=== PATIENT | female | born 1975 | race Caucasian/White ===

== ENCOUNTER → 2018-10-08 10:04 | Outpatient (CLI) | payer OTHER, MEDICAID, SELFPAY ==
[2018-10-08 10:41] LABS: Add Manual Diff / Slide Review NO; Basophils Absolute Auto 0 /uL (0-100); Basophils Percent Auto 0.4 % (0-2); Eosinophils Absolute Auto 100 /uL (0-450); Hematocrit 41.3 % (36-46); Hemoglobin 13.6 g/dL (12.0-16.0); Lymphocytes Absolute Auto 1200 /uL (1100-4500); Lymphocytes Percent Auto 25.2 % (25-40); Mean Corpuscular HGB Conc 32.9 % (30-36); Mean Corpuscular Volume 84.9 fL (80-100); Monocytes Absolute Auto 500 /uL (0-900); Monocytes Percent Auto 11.6 % (3-14); Neutrophils Absolute Auto 2900 /uL (1500-7000); Neutrophils Percent Auto 60.8 % (50-75); Platelet Count 338 X10^3/uL (150-400); Red Blood Cell Count 4.86 X10^6/uL (4.0-5.2); Red Cell Distribution Width 14.4 % (11.6-14.8); White Blood Cell Count 4.7 X10^3/uL (4.5-11.0)
[2018-10-08 11:18] LABS: HEMOLYSIS < 15 (0-50); Iron 113 ug/dL (37-170)
[2018-10-08 11:19] LABS: Alanine Aminotransferase 27 IU/L (9-52); Albumin 4.6 g/dL (3.5-5.0); Albumin Globulin Ratio 1.4 (1.0-2.8); Alkaline Phosphatase 53 U/L (38-126); Aspartate Aminotransferase 25 IU/L (14-36); BUN Creatinine Ratio 23.3 (6-22); Bilirubin Total 0.6 mg/dL (0.2-1.3); Blood Urea Nitrogen 14 mg/dL (7-17); Calcium 9.2 mg/dL (8.4-10.2); Carbon Dioxide 29 mmol/L (22-32); Chloride 98 mmol/L (98-107); Cholesterol 249 mg/dL (140-199); Estimated Glomerular Filt Rate > 60.0 mL/min (>60); Globulin 3.3 g/dL (1.7-4.1); Glucose 94 mg/dL (70-100); HDL Cholesterol 76 mg/dL (40-60); HEMOLYSIS < 15 (0-50); LDL Cholesterol Calculated 149 mg/dL (<100); Potassium 4.2 mmol/L (3.4-5.1); Sodium 137 mmol/L (137-145); Total Protein 7.9 g/dL (6.3-8.2); Triglycerides 118 mg/dL (35-150)
[2018-10-08 11:29] LABS: Percent Iron Saturation 27 % (15-50); Total Iron Binding Capacity 418 ug/dL (265-497); Transferrin 330 mg/dL (206-381)
[2018-10-08 11:40] LABS: Rheumatoid Factor < 8.6 IU/mL (<12.0)
[2018-10-08 11:45] LABS: Erythrocyte Sedimentation Rate 7 MM/HR (0-20)
[2018-10-08 11:50] LABS: Thyroid Stimulating Hormone 1.18 uIU/mL (0.47-4.68)
[2018-10-08 11:55] LABS: Ferritin 6.3 ng/mL (6.27-137)
[2018-10-12 07:47] LABS: ANA Screen NEGATIVE (Negative); DNA Antibody Crithidia IFA NEGATIVE (Negative); Rheumatoid Factor <14 IU/mL; Sjogren Antiboday SS-A <1.0 NEG AI (<1.0 NEGATIVE); Sjogren Antiboday SS-B <1.0 NEG AI (<1.0 NEGATIVE); Sm Antibody <1.0 NEG AI (<1.0 NEGATIVE); Sm/RNP Antibody <1.0 NEG AI (<1.0 NEGATIVE)
== END ==
PROVIDERS: Visit Provider Physician Assistant
DX: Z13.220 Encounter for screening for lipoid disorders (principal); Z13.6 Encounter for screening for cardiovascular disorders; M25.50 Pain in unspecified joint; N92.0 Excessive and frequent menstruation with regular cycle; R53.83 Other fatigue; M06.30 Rheumatoid nodule, unspecified site
CPT/HCPCS: 36415; 80053; 80061; 82728; 83540; 83550; 84443; 85025; 85651; 86038; 86430

== ENCOUNTER → 2019-03-30 08:49 | Outpatient (CLI) | payer OTHER, MEDICAID, SELFPAY ==
[2019-03-30 10:19] LABS: Cholesterol 253 mg/dL (140-199); HDL Cholesterol 78 mg/dL (40-60); LDL Cholesterol Calculated 155 mg/dL (<100); Triglycerides 100 mg/dL (35-150)
== END ==
PROVIDERS: PCP Physician Assistant; Visit Provider Physician Assistant
DX: E78.5 Hyperlipidemia, unspecified (principal)
CPT/HCPCS: 36415; 80061

== ENCOUNTER 2019-09-20 09:54 | Emergency (ER) | payer OTHER, MEDICAID, SELFPAY ==
[2019-09-20 10:16] VITALS: BP 172/90; PULSE 129; RESP 21; TEMP 36.8; O2SAT 100; BMI 30.9
--- NOTE | 2019-09-20 10:19 | DI.RAD.S_ITS ---
PROCEDURE: XR CHEST 1V INDICATIONS: chest pain TECHNIQUE: One view of the chest was acquired. COMPARISON: None. FINDINGS: Surgical changes and devices: None. Lungs and pleura: Lungs are clear. No pleural effusions or pneumothorax. Mediastinum: Mediastinal contours appear normal. Heart size is normal. Bones and chest wall: No suspicious bony lesions. Overlying soft tissues appear unremarkable. IMPRESSION: No acute process. Dictated by: Mallory Ozuna M.D. on 09/20/2019 at 11:07 Approved by: Mallory Ozuna M.D. on 09/20/2019 at 11:08
--- NOTE | 2019-09-20 10:24 | ED.CHESTPAIN ---
HPI - Chest Pain General Chief Complaint: Chest Pain Stated Complaint: elevated blood pressure Time Seen by Provider: 09/20/19 10:15 Source: patient Mode of arrival: Ambulatory Limitations: no limitations History of Present Illness HPI narrative: Patient states that on Thursday she was sitting at work and she felt like that her breathing was like she was exercising. She was not having any chest pain. She did feel like her heart was beating fast. She took her blood pressure and it was elevated. States the entire symptoms lasted approximately an hour. On Thursday similar symptoms happened again. She states she generally does not feel well. She has been taking her blood pressures multiple times throughout the past couple days and they have been elevated. No prior history of blood pressures. Her menstrual cycle did start just prior to the onset of the symptoms. Has not tried anything for symptoms prior to arrival. Related Data Previous Rx's Medication Instructions Recorded buspirone 10 mg tablet 10 mg PO BID #60 tab 05/09/19 hydroxyzine pamoate 25 mg capsule 25 mg PO TID PRN #60 cap 05/09/19 triamcinolone acetonide 0.1 % 1 applictn TOP BID #15 gram 09/06/19 topical cream Allergies Allergy/AdvReac Type Severity Reaction Status Date / Time No Known Drug Allergies Allergy Verified 09/20/19 10:16 Review of Systems Constitutional Constitutional: Denies headache(s) ENT Ears, Nose, Mouth, and Throat: Denies headache(s) Cardiovascular Cardiovascular: Denies chest pain, Reports rapid heart rate, Denies leg edema, Reports palpitations, Reports dyspnea and Reports dyspnea on exertion Respiratory Respiratory: Reports dyspnea and Reports dyspnea on exertion Gastrointestinal Gastrointestinal: Denies abdominal pain, Denies nausea and Denies vomiting Genitourinary Genitourinary: Denies dysuria Musculoskeletal Musculoskeletal: Denies myalgias and Denies arthralgias Integumentary/Breasts Skin/Breast: Denies lesions and Denies rash Neurologic Neurologic: Denies behavioral changes and Denies headache(s) Psychiatric Psychiatric: Denies behavioral changes Endocrine Endocrine: Reports palpitations Hematologic/Lymphatic Hematologic/Lymphatic: Denies easy bleeding and Denies easy bruising Patient History Medical History Contact dermatitis (Acute) Hearing loss (Chronic) Restless leg syndrome (Chronic) Seasonal allergies (Chronic) Family History (Updated 11/12/18 @ 20:45 by Jazlyn Grewal) Father Mental health problem Arthritis Mother Cancer Hyperlipidemia Thyroid disease Migraines Grandfather Heart disease Hyperlipidemia Stroke Grandmother Hypertension Mental health problem Stroke Arthritis Grandfather Heart disease Grandmother Cancer Social History Smoking Status: Never smoker second hand exposure: Yes (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.) alcohol intake: former (only for a couple of years in my 20s.) substance use type: does not use Smoking Status: Never smoker alcohol intake frequency: holidays/special occasions only Substance Use Type: does not use Exam Initial Vital Signs Initial Vital Signs: Vital Signs Temperature 98.3 F 09/20/19 10:16 Pulse Rate 129 H 09/20/19 10:16 Respiratory Rate 21 09/20/19 10:16 Blood Pressure 172/90 H 09/20/19 10:16 Pulse Oximetry 100 09/20/19 10:16 Const General: cooperative, comfortable and well developed Limitations: mental status not altered Resp Effort & Inspection: normal respiratory effort Auscultation: clear to auscultation bilaterally Cardio Rate: tachycardic Rhythm: regular rhythm Pulses: radial pulses present GI Inspection: non-distended Palpation: soft and No firm Skin Lesions: no lesions Rashes: no rashes Neuro General: alert, awake and oriented x3 Cognition: normal cognition Speech: speech normal Motor: muscle tone normal throughout Extrem General: normal to inspection and capillary refill normal Psych Appearance: grossly normal and well kempt Course Orders Ordered: ED Orders 09/20/19 10:15 EKG-12 Lead Stat 09/20/19 10:19 XR chest 1V Stat EKG-12 Lead Stat 09/20/19 10:23 Complete Blood Count AUTO DIFF Stat Comprehensive Metabolic Panel Stat D Dimer Stat Lipase Stat Partial Thromboplastin Time Stat Prothrombin Time INR Stat Troponin & CK Cardiac Panel Stat Vital Signs Vital signs: Vital Signs - 8 hr 09/20/19 10:16 Temperature 98.3 F Pulse Rate 129 H Respiratory Rate 21 Blood Pressure 172/90 H Pulse Oximetry 100 MDM - Chest Pain Lab Data Attestation: I reviewed the patient's lab results. Result diagrams: 09/20/19 10:23 09/20/19 10:23 Labs: Lab Results 09/20/19 09/20/19 09/20/19 Range/Units 10:23 10:23 10:23 WBC 9.2 (4.5-11.0) X10^3/uL RBC 4.91 (4.0-5.2) X10^6/uL Hgb 13.9 (12.0-16.0) g/dL Hct 41.2 (36-46) % MCV 83.9 (80-100) fL MCH 28.4 (26-34) PG MCHC 33.8 (30-36) % RDW 14.2 (11.6-14.8) % Plt Count 352 (150-400) X10^3/uL Neut % (Auto) 79.4 H (50-75) % Lymph % (Auto) 12.1 L (25-40) % Bartholomew % (Auto) 7.8 (3-14) % Eos % (Auto) 0.5 L (2-4) % Baso % (Auto) 0.2 (0-2) % Neut # (Auto) 7300 H (6928-7020) /uL Lymph # (Auto) 1100 (9888-3116) /uL Bartholomew # (Auto) 700 (0-900) /uL Eos # (Auto) 100 (0-450) /uL Baso # (Auto) 0 (0-100) /uL PT 11.2 (10.1-12.7) SECONDS INR 1.0 (0.9-1.3) APTT 35 (26.4-36.2) SECONDS D-Dimer (<230) ng/mL Sodium 138 (137-145) mmol/L Potassium 4.1 (3.4-5.1) mmol/L Chloride 103 (98-107) mmol/L Carbon Dioxide 25 (22-32) mmol/L BUN 14 (7-17) mg/dL Creatinine 0.60 (0.52-1.04) mg/dL Estimated GFR > 60.0 (>60) mL/min BUN/Creatinine Ratio 23.3 H (6-22) Glucose 105 H (70-100) mg/dL Calcium 9.3 (8.4-10.2) mg/dL Total Bilirubin 0.4 (0.2-1.3) mg/dL AST 24 (14-36) IU/L ALT 18 (<35) IU/L Alkaline Phosphatase 68 (38-126) U/L Total Creatine Kinase 65 (30-135) U/L CK-MB (CK-2) TNP CK-MB (CK-2) Rel Index TNP Troponin I < 0.012 (0.01-0.034) ng/mL Total Protein 8.2 (6.3-8.2) g/dL Albumin 4.7 (3.5-5.0) g/dL Globulin 3.5 (1.7-4.1) g/dL Albumin/Globulin Ratio 1.3 (1.0-2.8) Lipase 114 (23-300) U/L 09/20/19 Range/Units 10:23 WBC (4.5-11.0) X10^3/uL RBC (4.0-5.2) X10^6/uL Hgb (12.0-16.0) g/dL Hct (36-46) % MCV (80-100) fL MCH (26-34) PG MCHC (30-36) % RDW (11.6-14.8) % Plt Count (150-400) X10^3/uL Neut % (Auto) (50-75) % Lymph % (Auto) (25-40) % Bartholomew % (Auto) (3-14) % Eos % (Auto) (2-4) % Baso % (Auto) (0-2) % Neut # (Auto) (0054-0682) /uL Lymph # (Auto) (6601-1452) /uL Bartholomew # (Auto) (0-900) /uL Eos # (Auto) (0-450) /uL Baso # (Auto) (0-100) /uL PT (10.1-12.7) SECONDS INR (0.9-1.3) APTT (26.4-36.2) SECONDS D-Dimer 292 H (<230) ng/mL Sodium (137-145) mmol/L Potassium (3.4-5.1) mmol/L Chloride (98-107) mmol/L Carbon Dioxide (22-32) mmol/L BUN (7-17) mg/dL Creatinine (0.52-1.04) mg/dL Estimated GFR (>60) mL/min BUN/Creatinine Ratio (6-22) Glucose (70-100) mg/dL Calcium (8.4-10.2) mg/dL Total Bilirubin (0.2-1.3) mg/dL AST (14-36) IU/L ALT (<35) IU/L Alkaline Phosphatase (38-126) U/L Total Creatine Kinase (30-135) U/L CK-MB (CK-2) CK-MB (CK-2) Rel Index Troponin I (0.01-0.034) ng/mL Total Protein (6.3-8.2) g/dL Albumin (3.5-5.0) g/dL Globulin (1.7-4.1) g/dL Albumin/Globulin Ratio (1.0-2.8) Lipase (23-300) U/L Imaging Data Chest x-ray: Radiologist's Impression: [address] [address] XRay Report Signed Patient: Lisa Main LMR#: [id number] : 1975Acct:[id number] Age/Sex: 44 / FDate of Service: 09/20/19 Loc: ED Accession Number: [id number] Procedure: XR chest 1V Ordering Provider: Farzad Paige D.O. PROCEDURE: XR CHEST 1V INDICATIONS: chest pain TECHNIQUE: One view of the chest was acquired. COMPARISON: None. FINDINGS: Surgical changes and devices: None. Lungs and pleura: Lungs are clear. No pleural effusions or pneumothorax. Mediastinum: Mediastinal contours appear normal. Heart size is normal. Bones and chest wall: No suspicious bony lesions. Overlying soft tissues appear unremarkable. IMPRESSION: No acute process. Dictated by: Mallory Ozuna M.D. on 09/20/2019 at 11:07 Approved by: Mallory Ozuna M.D. on 09/20/2019 at 11:08 ECG Data Attestation: I personally reviewed and interpreted this ECG as follows: Prior ECG tracings: not available for review Interpretation: Sinus tachycardia Ventricular rate of 1 another Normal axis Normal QRS Normal QTC Nonspecific ST T wave changes MDM Narrative Medical decision making narrative: Patient's blood pressure did improve with rest. No chest pain. Low suspicion for CVA. Low suspicion for ACS. Kidney functions unremarkable. Was slightly tachycardic however was a regular rhythm. I did discuss this with the patient. We did discuss how to take her blood pressure at home. We did discuss that she should talk with her primary provider about a Holter monitor. Discussed return precautions and follow-up instructions. She expressed understanding and agreement plan. Discharge Plan Departure Patient Disposition: Home Clinical Impression: Tachycardia Hypertension Qualifiers: Hypertension type: unspecified Qualified Code(s): I10 - Essential (primary) hypertension Instructions: Essential Hypertension Activity Restrictions/Additional Instructions: Continue all of your medications as directed. I do recommend you talk with your primary provider about the indications for a Holter monitor. Take your blood pressure at home like we discussed. Return to the emergency department for any new or worsening symptoms Prescriptions: No Action hydroxyzine pamoate 25 mg capsule 25 mg PO TID PRN (Reason: anxiety) Qty: 60 RF: 6 buspirone 10 mg tablet 10 mg PO BID Qty: 60 RF: 6 triamcinolone acetonide 0.1 % cream 1 applictn TOP BID Qty: 15 RF: 1 Referrals: Annika Kramer PA-C [Primary Care Provider] -
[2019-09-20 11:01] VITALS: BP 186/84; PULSE 97; RESP 18; O2SAT 99
[2019-09-20 11:30] VITALS: BP 135/73; PULSE 104; RESP 17; O2SAT 100
[2019-09-20 12:01] VITALS: BP 150/70; PULSE 109; RESP 16; O2SAT 100
[2019-09-20 12:06] LABS: Add Manual Diff / Slide Review NO; Basophils Absolute Auto 0 /uL (0-100); Basophils Percent Auto 0.2 % (0-2); Eosinophils Absolute Auto 100 /uL (0-450); Eosinophils Percent Auto 0.5 % (2-4); Hematocrit 41.2 % (36-46); Hemoglobin 13.9 g/dL (12.0-16.0); Lymphocytes Absolute Auto 1100 /uL (1100-4500); Lymphocytes Percent Auto 12.1 % (25-40); Mean Corpuscular HGB Conc 33.8 % (30-36); Mean Corpuscular Hemoglobin 28.4 PG (26-34); Mean Corpuscular Volume 83.9 fL (80-100); Monocytes Absolute Auto 700 /uL (0-900); Monocytes Percent Auto 7.8 % (3-14); Neutrophils Absolute Auto 7300 /uL (1500-7000); Neutrophils Percent Auto 79.4 % (50-75); Platelet Count 352 X10^3/uL (150-400); Red Blood Cell Count 4.91 X10^6/uL (4.0-5.2); Red Cell Distribution Width 14.2 % (11.6-14.8); White Blood Cell Count 9.2 X10^3/uL (4.5-11.0)
[2019-09-20 12:14] LABS: Prothrombin Time 11.2 SECONDS (10.1-12.7)
[2019-09-20 12:16] LABS: PTT Partial Thromboplastin Tim 35 SECONDS (26.4-36.2)
[2019-09-20 12:18] LABS: Alanine Aminotransferase 18 IU/L (<35); Albumin 4.7 g/dL (3.5-5.0); Albumin Globulin Ratio 1.3 (1.0-2.8); Alkaline Phosphatase 68 U/L (38-126); Aspartate Aminotransferase 24 IU/L (14-36); BUN Creatinine Ratio 23.3 (6-22); Bilirubin Total 0.4 mg/dL (0.2-1.3); Blood Urea Nitrogen 14 mg/dL (7-17); Calcium 9.3 mg/dL (8.4-10.2); Carbon Dioxide 25 mmol/L (22-32); Chloride 103 mmol/L (98-107); Creatine Kinase 65 U/L (30-135); Estimated Glomerular Filt Rate > 60.0 mL/min (>60); Globulin 3.5 g/dL (1.7-4.1); Glucose 105 mg/dL (70-100); HEMOLYSIS 16 (0-50); Lipase 114 U/L (23-300); Potassium 4.1 mmol/L (3.4-5.1); Sodium 138 mmol/L (137-145); Total Protein 8.2 g/dL (6.3-8.2)
[2019-09-20 12:23] LABS: D Dimer 292 ng/mL (<230)
[2019-09-20 12:29] LABS: Troponin I < 0.012 ng/mL (0.01-0.034)
[2019-09-20 13:01] VITALS: BP 149/73; PULSE 99; RESP 16; O2SAT 100
--- NOTE | 2019-09-20 13:34 | PC.NURSE ---
Patient denies chest pain at this time. She reports it just feels sick and not right in her chest. Denies pressure or tightness or nausea. Patient is unable to describe what she means by sick feeling in chest. She also reports elevated heart rate 100-110bpm and elevated blood pressure of 150 systolic at home.
== END 2019-09-20 11:45 | disposition home or self-care (01) ==
PROVIDERS: Emergency Provider Emergency Medicine; PCP Physician Assistant
DX: R00.0 Tachycardia, unspecified (principal); I10 Essential (primary) hypertension; R07.9 Chest pain, unspecified
CPT/HCPCS: 36415; 71045; 80053; 82550; 83690; 84484; 85025; 85379; 85610; 85730; 93005; 99284; 99285

== ENCOUNTER → 2019-09-23 11:28 | Outpatient (CLI) | payer OTHER, MEDICAID, SELFPAY ==
[2019-09-23 13:12] LABS: Erythrocyte Sedimentation Rate 9 MM/HR (0-20)
[2019-09-23 13:46] LABS: C-Reactive Protein Quant < 0.5 mg/dL (<1.0); Rheumatoid Factor < 8.6 IU/mL (<12.0)
[2019-09-23 14:02] LABS: Free T3, Triiodothyronine Free 3.93 pg/mL (2.77-5.27); Free T4, Direct Thyroxine 1.23 ng/dL (0.78-2.19)
[2019-09-23 14:16] LABS: Thyroid Stimulating Hormone 1.18 uIU/mL (0.47-4.68)
== END ==
PROVIDERS: PCP Nurse Practitioner; Referring Provider Nurse Practitioner; Visit Provider Nurse Practitioner
DX: I10 Essential (primary) hypertension (principal); R00.0 Tachycardia, unspecified; R00.2 Palpitations; R94.31 Abnormal electrocardiogram [ECG] [EKG]
CPT/HCPCS: 36415; 84439; 84443; 84481; 85651; 86140; 86430

== ENCOUNTER → 2019-10-17 09:10 | Outpatient (CLI) | payer OTHER, MEDICAID, SELFPAY ==
--- NOTE | 2019-10-17 09:11 | DI.ECHO.S_ITS ---
[facility]---------+ [facility] +---------+ : : [address] [place] [address] : : : : [id number] : : : : Phone: [phone]+ Echocardiogram Report + + :Name: MILENA ROCK Study Date: 10/17/2019 Height: 64 in : :[facility] Weight: 179 lb : : Gender: Female BSA: 1.9 m2 : :: 1975 Age: 44 yrs BP: 138/92 mmHg: :Reason For Study: HYPERTENSION : : Performed By: Peyton Turpin : :Referring: DOUGLAS GARCIA : + + Interpretation Summary Normal echo study. Procedure: A two-dimensional transthoracic echocardiogram with color flow and Doppler was performed. The study quality was technically adequate. There is no prior echocardiogram noted for this patient. The patient was in normal sinus rhythm during the exam. Left Ventricle: The left ventricle is normal in size and wall thickness. The ejection fraction is estimated to be 60-65%. Left ventricular wall motion is normal. Diastolic parameters suggest probable normal left ventricular diastolic function and normal filling pressures. Right Ventricle: The right ventricle is normal in size and function. Atria: Both atria are normal in size. There is no Doppler evidence for an interatrial shunt. Mitral Valve: The mitral valve is normal in structure and function. There is trace mitral regurgitation. Aortic Valve: The aortic valve is trileaflet. The aortic valve opens well. There is no aortic valve stenosis. No aortic regurgitation is present. Tricuspid Valve: The tricuspid valve is normal in structure and function. There is trace tricuspid regurgitation. Pulmonary artery pressures cannot be estimated because of the lack of a measurable TR jet velocity but the IVC suggests a CVP of around 3 mmHg. Pulmonic Valve: The pulmonic valve is not well seen, but is grossly normal. There is a trace or physiologic amount of pulmonic regurgitation. Great Vessels: The aortic root is normal size. The ascending aorta is normal in size. The IVC is of normal diameter and collapses greater than 50% with a sniff. This suggests a low right atrial pressure of 3 mm Hg. Pericardium/ Pleura There is no pericardial effusion. There is no pleural effusion. MMode/2D Measurements & Calculations LVIDd: 4.2 cm LVOT diam: 1.9 cm LVIDs: 2.7 cm Ao root diam: 2.7 cm FS: 36.5 % asc Aorta Diam: 3.0 cm EPSS: 0.38 cm Ao Arch Diam (Prox Trans): 2.6 cm IVSd: 1.0 cm LVPWd: 1.1 cm LV zeng. diameter/BSA (cm/m^2): 2.2 LV sys. diameter/BSA (cm/m^2): 1.4 LA A2 area: 16.0 cm2 RA long axis: 4.1 cm LA A4 area: 13.2 cm2 RA area: 10.9 cm2 LA length (vol): 4.2 cm RA vol: 25.1 ml LA vol: 43.2 ml RA : 13.4 ml/m2 LA vol index: 23.2 ml/m2 IVC diam: 1.1 cm RVD1 (basal): 3.2 cm TAPSE: 2.1 cm Doppler Measurements & Calculations Ao V2 max: 150.0 cm/sec LVOT Max Miguel: 120.3 cm/sec Ao V2 mean: 98.0 cm/sec LV V1 max P.8 mmHg Ao max P.0 mmHg LV V1 VTI: 23.0 cm Ao mean P.5 mmHg REX(I,D): 2.2 cm2 Ao V2 VTI: 29.5 cm REX(V,D): 2.3 cm2 sev ratio: 0.78 REX indexed to BSA (cm^2/m^2): 1.2 MV E max miguel: 95.6 cm/sec PA V2 max: 102.9 cm/sec MV A max miguel: 78.3 cm/sec PA V2 mean: 66.8 cm/sec MV E/A: 1.2 PA mean P.1 mmHg Med Peak E' Miguel: 10.0 cm/sec PA Accel Time: 0.12 sec E/E' med: 9.6 Lat Peak E' Miguel: 13.3 cm/sec E/E' lat: 7.2 E/e' average: 8.4 MV dec time: 0.17 sec MV P1/2t: 48.3 msec MV P1/2t max miguel: 94.9 cm/sec SV(LVOT): 65.1 ml MVA(P1/2t): 4.6 cm2 Electronically signed by: Mando Alejandro on Reading Physician:10/17/2019 10:58 AM
== END ==
PROVIDERS: PCP Nurse Practitioner; Referring Provider Nurse Practitioner; Visit Provider Nurse Practitioner
DX: I10 Essential (primary) hypertension (principal); R94.31 Abnormal electrocardiogram [ECG] [EKG]; R00.0 Tachycardia, unspecified; R00.2 Palpitations
CPT/HCPCS: 93306

== ENCOUNTER → 2019-10-20 14:47 | Outpatient (CLI) | payer OTHER, MEDICAID, SELFPAY ==
--- NOTE | 2019-10-21 08:19 | P.PCN_ITS ---
Cardiac Stress Test Report Referral & Results Date Patient Seen: 10/21/19 Time Patient Seen: 08:00 Requesting provider: Shaylee Tian Indication: Tachycardia Rest ECG: Normal sinus rhythm Procedure Note: Today following both written and verbal informed consent the patient was exercised according to a standard Iker protocol patient went for a total of 5 minutes 3 seconds achieving a maximum heart rate of 175 maximum systolic blood pressure of 190. This is approximately 7 METs. Exercise was terminated at this point because of fatigue. Patient was also given Cardiolite through a previously started Hep-Lock IV by the nuclear radiation engineer approximately 1 minute prior to the cessation of exercise. Exaggerated hemodynamic response to exercise. Blood pressure and heart rate were near maximal values within 3 minutes. Markedly reduced exercise capacity (AMY +25%). ST deviations in posterior leads that resolved rapidly with rest. No signs or symptoms of angina. Impression: Intermediate probability for ischemia. Will await perfusion imaging. Please note: Actual ECG tracings can be found in the PACS system.
--- NOTE | 2019-10-24 14:36 | DI.NM.S_ITS ---
DATE OF SERVICE: 10/20/2019 PROCEDURE PERFORMED:: Exercise treadmill stress and rest myocardial perfusion imaging with gating to assess ejection fraction and regional wall motion. ORDERING PROVIDER:: STEVEN Todd. INDICATIONS:: The patient is a 44-year-old female with chest pressure and hypertension. EXERCISE TREADMILL TESTING:: The patient exercised for a total of 5 minutes and 3 seconds on a standard Iker protocol, suggesting moderately impaired exercise capacity with an AMY of +25%. She had an accelerated heart rate response to exercise with a resting heart rate of 93 bpm, increasing to 162 bpm after 3 minutes of exercise and achieving a maximum heart rate of 175 bpm (101% of her predicted maximum) at peak exercise. She had a normal blood pressure response. She had no chest discomfort. Her resting ECG is normal and there are no significant ST-segment shifts with exercise. There were no arrhythmias. At 3 minutes 57 seconds of exercise at a heart rate of 171 bpm, 27.1 mCi of technetium-99m Myoview was injected and she was imaged 15 minutes later using a gated SPECT acquisition protocol. On the previous day, she had been injected with 24.4 mCi of technetium-99m Myoview at rest and was imaged 30 minutes later, again using a gated SPECT acquisition protocol. FINDINGS:: 1. RAW DATA: There is fair myocardial tracer uptake with mild breast shadows noted. Lung-heart ratio is normal at 0.30 with a normal TID ratio of 0.77. 2. QUANTITATED GATED SPECT: Post-stress ejection fraction is estimated at 89%, likely an overestimate because of relatively small left ventricular volumes. There are no focal wall motion abnormalities. Resting ejection fraction is estimated at 80% with the end-diastolic volume is 92 mL. 3. MYOCARDIAL PERFUSION IMAGING: Post-stress supine images shows a normal myocardial perfusion pattern, supported by normal perfusion imaging in the prone position. The resting images show a similar perfusion pattern without any areas of improvement. IMPRESSION:: 1. Normal myocardial perfusion study. 2. No evidence for myocardial ischemia or previous myocardial infarction. 3. Normal left ventricular systolic function without focal wall motion abnormality. 4. Moderately impaired exercise capacity without angina or ECG evidence of ischemia. She had a somewhat accelerated heart rate response to exercise, suggesting possible reduced cardiovascular fitness. Lisa Main - Ginger doc#: [id number]/job#: [id number] dd: 10/24/2019 12:48:00 dt: 10/24/2019 13:58:00 DICTATING MD/COPIES TO: Alvaro Mendiola MD; STEVEN Todd COPIES MNE: WILDER; ; STEVEN Todd
== END ==
PROVIDERS: PCP Nurse Practitioner; Referring Provider Nurse Practitioner; Visit Provider Nurse Practitioner
DX: R07.89 Other chest pain (principal); R00.0 Tachycardia, unspecified; R94.31 Abnormal electrocardiogram [ECG] [EKG]; I10 Essential (primary) hypertension
CPT/HCPCS: 78452; 93016; 93017; 93018; A9502

== ENCOUNTER → 2021-03-06 07:10 | Outpatient (CLI) | payer OTHER, MEDICAID, SELFPAY ==
[2021-03-06 08:14] LABS: Add Manual Diff / Slide Review NO; Basophils Absolute Auto 0 /uL (0-100); Basophils Percent Auto 0.4 % (0-2); Eosinophils Absolute Auto 200 /uL (0-450); Eosinophils Percent Auto 1.8 % (2-4); Hematocrit 41.3 % (36-46); Hemoglobin 13.8 g/dL (12.0-16.0); Lymphocytes Absolute Auto 2300 /uL (1100-4500); Lymphocytes Percent Auto 25.4 % (25-40); Mean Corpuscular HGB Conc 33.4 % (30-36); Mean Corpuscular Hemoglobin 27.5 PG (26-34); Mean Corpuscular Volume 82.2 fL (80-100); Monocytes Absolute Auto 900 /uL (0-900); Neutrophils Absolute Auto 5600 /uL (1500-7000); Neutrophils Percent Auto 62.4 % (50-75); Platelet Count 388 X10^3/uL (150-400); Red Blood Cell Count 5.02 X10^6/uL (4.0-5.2); Red Cell Distribution Width 14.9 % (11.6-14.8); White Blood Cell Count 8.9 X10^3/uL (4.5-11.0)
[2021-03-06 08:37] LABS: Alanine Aminotransferase 21 IU/L (<35); Albumin 4.5 g/dL (3.5-5.0); Albumin Globulin Ratio 1.3 (1.0-2.8); Alkaline Phosphatase 56 U/L (38-126); Aspartate Aminotransferase 23 IU/L (14-36); Bilirubin Total 0.4 mg/dL (0.2-1.3); Blood Urea Nitrogen 17 mg/dL (7-17); Calcium 9.8 mg/dL (8.4-10.2); Carbon Dioxide 28 mmol/L (22-32); Chloride 101 mmol/L (98-107); Cholesterol 300 mg/dL (140-199); Estimated Glomerular Filt Rate > 60.0 mL/min (>60); Globulin 3.4 g/dL (1.7-4.1); Glucose 107 mg/dL (70-100); HDL Cholesterol 66 mg/dL (40-60); HEMOLYSIS < 15 (0-50); LDL Cholesterol Calculated 185 mg/dL (<100); Potassium 4.4 mmol/L (3.4-5.1); Sodium 136 mmol/L (137-145); Total Protein 7.9 g/dL (6.3-8.2); Triglycerides 244 mg/dL (35-150)
[2021-03-06 09:08] LABS: Thyroid Stimulating Hormone 2.12 uIU/mL (0.47-4.68)
== END ==
PROVIDERS: PCP Nurse Practitioner; Referring Provider Nurse Practitioner; Visit Provider Nurse Practitioner
DX: Z00.00 Encounter for general adult medical examination without abnormal findings (principal); E78.5 Hyperlipidemia, unspecified; F41.8 Other specified anxiety disorders; R53.83 Other fatigue; R68.89 Other general symptoms and signs
CPT/HCPCS: 36415; 80053; 80061; 84439; 84443; 84481; 85025

== ENCOUNTER → 2021-04-17 15:02 | Outpatient (CLI) | payer OTHER, MEDICAID, SELFPAY ==
--- NOTE | 2021-04-17 15:03 | DI.MG.S_ITS ---
BILATERAL DIGITAL SCREENING MAMMOGRAM 3D/2D WITH CAD: 04/17/2021 CLINICAL: Routine screening. Comparison is made to exams dated: 07/30/2016 mammogram, 02/04/2016 specimen, 02/04/2016 mammogram - [facility], and 01/31/2016 ultrasound - [facility]. The tissue of both breasts is heterogeneously dense. This may lower the sensitivity of mammography. Current study was also evaluated with a Computer Aided Detection (CAD) system. There are grouped fine calcifications with a branching pattern in the left breast middle depth medial region seen on the craniocaudal view only. No other significant masses, calcifications, or other findings are seen in either breast. IMPRESSION: INCOMPLETE: NEEDS ADDITIONAL IMAGING EVALUATION The grouped fine calcifications in the left breast have a differential diagnosis of DCIS or vascular calcifications and are indeterminate. Magnification views as well as additional views with possible ultrasound are recommended. This exam was interpreted at Station ID: [id number]. NOTE: For mammograms, a report in lay terms will be sent to the patient. Approximately 15% of breast malignancies will not be visualized mammographically. In the management of a palpable breast mass, a negative mammogram must not discourage biopsy of a clinically suspicious lesion. Electronically Signed By: Rolando Evans acr/:04/17/2021 16:27:37 letter sent: Additional Imaging Needed ACR BI-RADS Category 0: Incomplete [id number]
== END ==
PROVIDERS: PCP Nurse Practitioner; Referring Provider Nurse Practitioner; Visit Provider Nurse Practitioner
DX: Z12.31 Encounter for screening mammogram for malignant neoplasm of breast (principal)
CPT/HCPCS: 77063; 77067

== ENCOUNTER → 2021-04-22 10:41 | Outpatient (CLI) | payer OTHER, MEDICAID, SELFPAY ==
[2021-04-22 14:28] LABS: COVID19 -Nasal RAPID Negative (Negative)
== END ==
PROVIDERS: PCP Nurse Practitioner; Visit Provider Nurse Practitioner Family
DX: Z20.822 Contact with and (suspected) exposure to COVID-19 (principal); R05 Cough
CPT/HCPCS: 87635

== ENCOUNTER → 2021-05-06 15:00 | Outpatient (CLI) | payer OTHER, MEDICAID, SELFPAY ==
--- NOTE | 2021-05-06 15:01 | DI.MG.S_ITS ---
UNILATERAL LEFT DIGITAL DIAGNOSTIC MAMMOGRAM 3D/2D: 05/06/2021 CLINICAL: Additional evaluation requested from prior study. Comparison is made to exams dated: 04/17/2021 mammogram - [facility], 07/30/2016 mammogram, and 02/04/2016 specimen - [facility]. The tissue of left breast is heterogeneously dense. This may lower the sensitivity of mammography. There are linear fine calcifications in the left breast anterior depth central to the nipple seen on the craniocaudal view only. These are less prominent on additional views. A few of these are consistent with vascular calcifications but a few remain indeterminate. No other significant masses or calcifications are seen in the breast. IMPRESSION: PROBABLY BENIGN The linear fine calcifications in the left breast resemble vascular calcifications and are probably benign. A follow-up mammogram in 6 months is recommended. A follow-up mammogram in 6 months is recommended to demonstrate stability. This exam was interpreted at Station ID: [id number]. NOTE: For mammograms, a report in lay terms will be sent to the patient. Approximately 15% of breast malignancies will not be visualized mammographically. In the management of a palpable breast mass, a negative mammogram must not discourage biopsy of a clinically suspicious lesion. Electronically Signed By: Evans gtz/:05/06/2021 15:31:23 letter sent: Followup Recommended ACR BI-RADS Category 3: Probably benign [id number]
== END ==
PROVIDERS: PCP Nurse Practitioner; Referring Provider Nurse Practitioner; Visit Provider Nurse Practitioner
DX: R92.8 Other abnormal and inconclusive findings on diagnostic imaging of breast (principal); R92.1 Mammographic calcification found on diagnostic imaging of breast
CPT/HCPCS: 77065; G0279

== ENCOUNTER 2021-07-31 13:45 | Outpatient (RCR) | payer OTHER, MEDICAID, SELFPAY ==
--- NOTE | 2021-05-29 11:10 | PT.OIE ---
Current Diagnoses Dyspareunia not due to a substance or known physiological condition (05/29/21) Unspecified urinary incontinence (05/29/21) Urgency of urination (05/29/21) Past Medical History (Last Updated 04/19/21 @ 11:54 by STEVEN Todd) Contact dermatitis Ganglion cyst of left foot Hearing loss Hyperlipidemia, unspecified Insomnia Mitral regurgitation Mixed hyperlipidemia Restless leg syndrome Seasonal allergies Tricuspid regurgitation Visit Care Team Role Provider Type STEVEN Todd Attending Provider Advanced Contract Coordinator Family Provider Primary Care Provider Referring Provider Specialty: Family Practice Address: [address] [place] [address] Email: [email or web address] Physical Therapy Initial Evaluation PT-OP-A Visit Information Start: 05/24/21 15:35 Freq: Status: Active Protocol: Document 05/29/21 09:45 AMB (Rec: 05/29/21 16:30 AMB [email or web address]) Out-Patient Physical Therapy Visit Information Visit Information Visit Type Initial Evaluation Visit Start Time 09:45 Visit Stop Time 10:30 Total Visit Minutes 45 Visit Number 1 PT-OP-B Current Condition Start: 05/24/21 15:35 Freq: Status: Active Protocol: Document 05/29/21 09:45 AMB (Rec: 05/29/21 10:16 AMB [id number]) Current Condition History of Current Condition Onset Date chronic Current Complaints urinary urgency/frequency lindy when leaving the house History of Current Condition Summer attends physical therapy with a history of urgency, frequency, stress urinary incontinence, constipation, and pelvic pain. Her biggest concern is the urgency and frequency associated with leaving the house. She states she had a lot of rules about bathrooming as a child. She reports stress and anxiety, a difficult marriage, now . She did have two babies and sx seemed to worsen after the second baby which was over 10# and both deliveries were vaginal. She reports she is big water drinker. Morning coffee with milk, milk is an irritant for her and she drinks it in order to manage her constipation. She reports in order to leave the house sometimes she goes to the bathroom 10-15x before leaving. For example recently her son had an appt in [facility] and she didn't go to the bathroom as much before leaving due to time restraints and had a heavy pressure in bladder and leaking uses a maxi pad but only wears when going out until she urinated after the appointment. Only goes multiple times if she's leaving the house. Does have pelvic pain history. Does feel like urine trickles out when standing up after urinating. Constipation if doesn't drink a little bit of milk, has splinted vaginally historically due to constipation. Pt reports burning/discomfort/ difficulty relaxing with doing a kegel. Treatment Goals Patient/Caregiver Goals Be able to leave the house without urinating multiple times Personal Factors Other Personal Factors That May Effect Hx of trauma, anxiety Therapy/Recovery PT-OP-I Pelvic Floor Start: 05/24/21 15:35 Freq: Status: Active Protocol: Document 05/29/21 09:45 AMB (Rec: 06/02/21 10:59 AMB [email or web address]) Pelvic Floor Assessment Urine Pelvic Floor Surgery No Urinary Symptoms Dysuria,Urge Sensation,Falling Out Feeling/Heavy,Pain Leakage Size Medium Leakage Cause Lifting,Sneeze,Urge Other Leakage Causes laughter Voiding Frequency many times before leaving the house, then can hold a couple hours Nocturia 0 Bowel Bowel Symptoms Constipation Other Bowel Symptoms drinks milk to manage constipation Bowel Movement Frequency 1 [place] Stool Chart Type 1-7 4 Comments Pelvic Floor Comments did not do an internal assessment today due to Summer 's obvious anxiety and history of pain. Chose rather to discuss behavioral modifications and get a full history. She is still very worried about an internal exam , although did recently have a pap that she was able to tolerate well. PT-OP-T Assessment and Plan Start: 05/24/21 15:35 Freq: Status: Active Protocol: Document 05/29/21 09:42 AMB (Rec: 05/30/21 09:47 AMB [email or web address]) Physical Therapy Assessment Evaluation Complexity Number of Personal Factors/Comorbidities 1-2 Number of Body Systems Impaired 4 or More Clinical Presentation at Evaluation Evolving Impairments Impairments Functional Activities,Pain, Soft Tissue Mobility,Strength Goals urinary frequency Impairment when leaving the house [employer] Goal (LTG) Summer will void urine once before leaving the house. LTG Duration 12 weeks pelvic floor strength Impairment tightness/weakness Short Term Goal (STG) Summer will be independent with a HEP to stretch and relax her pelvic floor muscles . STG Duration 6 weeks Half-Way Goal (LTG) Summer will be able to both contract and relax her pelvic floormuscles on command. LTG Duration 12 weeks continence Impairment urge/stress Short Term Goal (STG) Lisa will report reduced feeling of pelvic heaviness after voiding urine. STG Duration 6 weeks [employer] Goal (LTG) Lisa will be able to laugh without leaking urine. LTG Duration 12 weeks Assessment Summary Assessment Lisa presents to physical therapy with urinary frequency and urgency. She has a history of pelvic pain and anxiety that made us defer her internal pelvic exam, but given her subjective history I am interested to see if she has signs of prolapse. When asked to do a kegel in seated, Lisa described her pelvic floor muscles like a fist, even after she was done liv and wanted to relax them. Physical therapy will first work on being able to relax the pelvic floor muscles (pt has a tendency to push the urine out). Then we will hopefully be able to fully assess her strength and continue to encourage good bladder/bowel habits (managing constipation, not bearing down) while educating her in urge reduction techniques. Physical Therapy Plan Frequency and Duration Frequency of Treatment 1x/Week Duration of Treatment 12 weeks Plan of Care Start Date 05/30/21 Plan of Care End Date 08/22/21 Therapeutic Interventions Therapeutic Interventions Home Exercise Program,Manual Therapy,Neuromuscular Re- education,Self-Care/Home Management,Therapeutic Activities,Therapeutic Exercises Modalities Biofeedback,Cold Pack/Ice Massage,Electric Stimulation, Hot Packs Next Visit Focus/Plan Next Note Type Treatment Note Next Visit Plan Pelvic floor relaxation/ stretching/breathing
--- NOTE | 2021-05-29 11:10 | PT.OPPOC ---
Physical, Occupational & Speech Therapy At [facility] Current Diagnoses Dyspareunia not due to a substance or known physiological condition (05/29/21) Unspecified urinary incontinence (05/29/21) Urgency of urination (05/29/21) Visit Care Team Role Provider Type STEVEN Todd Attending Provider Advanced Aircraft Seat Upholsterer Family Provider Primary Care Provider Referring Provider Specialty: Family Practice Address: [address] [place] [address], [id number] Email: [email or web address] Plan Of Care PT-OP-T Assessment and Plan Start: 05/24/21 15:35 Freq: Status: Active Protocol: Document 05/29/21 09:42 AMB (Rec: 05/30/21 09:47 AMB [email or web address]) Physical Therapy Assessment Evaluation Complexity Number of Personal Factors/Comorbidities 1-2 Number of Body Systems Impaired 4 or More Clinical Presentation at Evaluation Evolving Impairments Impairments Functional Activities,Pain, Soft Tissue Mobility,Strength Goals urinary frequency Impairment when leaving the house [employer] Goal (LTG) Lisa will void urine once before leaving the house. LTG Duration 12 weeks pelvic floor strength Impairment tightness/weakness Short Term Goal (STG) Lisa will be independent with a HEP to stretch and relax her pelvic floor muscles . STG Duration 6 weeks Telephone Operators Supervisor Goal (LTG) Lisa will be able to both contract and relax her pelvic floormuscles on command. LTG Duration 12 weeks continence Impairment urge/stress Short Term Goal (STG) Lisa will report reduced feeling of pelvic heaviness after voiding urine. STG Duration 6 weeks Telephone Operators Supervisor Goal (LTG) Lisa will be able to laugh without leaking urine. LTG Duration 12 weeks Assessment Summary Assessment Lisa presents to physical therapy with urinary frequency and urgency. She has a history of pelvic pain and anxiety that made us defer her internal pelvic exam, but given her subjective history I am interested to see if she has signs of prolapse. When asked to do a kegel in seated, Lisa described her pelvic floor muscles like a fist, even after she was done liv and wanted to relax them. Physical therapy will first work on being able to relax the pelvic floor muscles (pt has a tendency to push the urine out). Then we will hopefully be able to fully assess her strength and continue to encourage good bladder/bowel habits (managing constipation, not bearing down) while educating her in urge reduction techniques. Physical Therapy Plan Frequency and Duration Frequency of Treatment 1x/Week Duration of Treatment 12 weeks Plan of Care Start Date 05/30/21 Plan of Care End Date 08/22/21 Therapeutic Interventions Therapeutic Interventions Home Exercise Program,Manual Therapy,Neuromuscular Re- education,Self-Care/Home Management,Therapeutic Activities,Therapeutic Exercises Modalities Biofeedback,Cold Pack/Ice Massage,Electric Stimulation, Hot Packs Next Visit Focus/Plan Next Note Type Treatment Note Next Visit Plan Pelvic floor relaxation/ stretching/breathing Plan of Care Dates Plan of Care Start Date 05/30/21 Plan of Care End Date 08/22/21 Electronically Signed by: Roselia Grimm, PT 06/02/21 [id number] Please Sign and Return: I have reviewed this Plan of Care and certify that the skilled therapy services above are required to meet the patient?s needs. Physician Signature Date Printed Name and Credentials Clinical Instructor Signature Printed Name and Credentials
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
--- NOTE | 2021-06-14 10:57 | PT-OP ANOTE ---
Pt no showed her appt, called pt and she stated that she had just woken up. She has had a stressful week with the mental health of her son and is taking him to the doctor today. She was apologetic and stated she would be at her appt next week.
--- NOTE | 2021-06-19 10:47 | PT.OTN ---
Current Diagnoses Dyspareunia not due to a substance or known physiological condition (06/19/21) Unspecified urinary incontinence (06/19/21) Urgency of urination (06/19/21) Physical Therapy Treatment Note PT-OP-A Visit Information Start: 05/24/21 15:35 Freq: Status: Active Protocol: Document 06/19/21 08:15 AMB (Rec: 06/19/21 08:45 AMB [id number]) Out-Patient Physical Therapy Visit Information Visit Information Visit Type Treatment Note Visit Start Time 08:15 Visit Stop Time 09:00 Total Visit Minutes 45 Visit Number 3 PT-OP-B Current Condition Start: 05/24/21 15:35 Freq: Status: Active Protocol: Document 05/29/21 09:45 AMB (Rec: 05/29/21 10:16 AMB [id number]) Current Condition History of Current Condition Onset Date chronic Current Complaints urinary urgency/frequency lindy when leaving the house History of Current Condition Summer attends physical therapy with a history of urgency, frequency, stress urinary incontinence, constipation, and pelvic pain. Her biggest concern is the urgency and frequency associated with leaving the house. She states she had a lot of rules about bathrooming as a child. She reports stress and anxiety, a difficult marriage, now . She did have two babies and sx seemed to worsen after the second baby which was over 10# and both deliveries were vaginal. She reports she is big water drinker. Morning coffee with milk, milk is an irritant for her and she drinks it in order to manage her constipation. She reports in order to leave the house sometimes she goes to the bathroom 10-15x before leaving. For example recently her son had an appt in [facility] and she didn't go to the bathroom as much before leaving due to time restraints and had a heavy pressure in bladder and leaking uses a maxi pad but only wears when going out until she urinated after the appointment. Only goes multiple times if she's leaving the house. Does have pelvic pain history. Does feel like urine trickles out when standing up after urinating. Constipation if doesn't drink a little bit of milk, has splinted vaginally historically due to constipation. Pt reports burning/discomfort/ difficulty relaxing with doing a kegel. Treatment Goals Patient/Caregiver Goals Be able to leave the house without urinating multiple times Personal Factors Other Personal Factors That May Effect Hx of trauma, anxiety Therapy/Recovery PT-OP-C Subjective Start: 05/24/21 15:35 Freq: Status: Active Protocol: Document 06/19/21 08:15 AMB (Rec: 06/19/21 08:45 AMB [id number]) OP-PT Subjective Patient Comments Patient Comments Pt reports not going back to the toilet as much. Pain in abdomen with a belt. PT-OP-I Pelvic Floor Start: 05/24/21 15:35 Freq: Status: Active Protocol: Document 05/29/21 09:45 AMB (Rec: 06/02/21 10:59 AMB [email or web address]) Pelvic Floor Assessment Urine Pelvic Floor Surgery No Urinary Symptoms Dysuria,Urge Sensation,Falling Out Feeling/Heavy,Pain Leakage Size Medium Leakage Cause Lifting,Sneeze,Urge Other Leakage Causes laughter Voiding Frequency many times before leaving the house, then can hold a couple hours Nocturia 0 Bowel Bowel Symptoms Constipation Other Bowel Symptoms drinks milk to manage constipation Bowel Movement Frequency 1 [place] Stool Chart Type 1-7 4 Comments Pelvic Floor Comments did not do an internal assessment today due to Summer 's obvious anxiety and history of pain. Chose rather to discuss behavioral modifications and get a full history. She is still very worried about an internal exam , although did recently have a pap that she was able to tolerate well. PT-OP-Q Treatments Start: 05/24/21 15:35 Freq: Status: Active Protocol: Document 06/19/21 08:15 AMB (Rec: 06/22/21 10:47 AMB [email or web address]) Therapeutic Exercises Supine Exercises double knee to chest Reps/Minutes 30x3 legs elevated Comments breathing, tried to kegel but increased pain, worked more on relaxation Other Exercises kip pose Reps/Minutes 30 PT-OP-T Assessment and Plan Start: 05/24/21 15:35 Freq: Status: Active Protocol: Document 06/19/21 08:15 AMB (Rec: 06/19/21 08:45 AMB [id number]) Physical Therapy Assessment Assessment Summary Assessment Even with a very gentle cue to contract pelvic floor, pt felt a lot ofpain/pressure so did not give kegels, and would recommend holding on that for a while. Pt verbalizes a difficult time with emotions of working on this issue/body part. Discussed meditation as a way to quiet anxiety. Physical Therapy Plan Next Visit Focus/Plan Next Note Type Treatment Note Next Visit Plan Anxiety reduction, breathing, self massage for abdominal pain
--- NOTE | 2021-06-26 14:22 | PT.OTN ---
Current Diagnoses Dyspareunia not due to a substance or known physiological condition (06/26/21) Unspecified urinary incontinence (06/26/21) Urgency of urination (06/26/21) Physical Therapy Treatment Note PT-OP-A Visit Information Start: 05/24/21 15:35 Freq: Status: Active Protocol: Document 06/26/21 11:15 AMB (Rec: 06/26/21 11:38 AMB [id number]) Out-Patient Physical Therapy Visit Information Visit Information Visit Type Treatment Note Visit Start Time 11:15 Visit Stop Time 12:00 Total Visit Minutes 45 Visit Number 4 PT-OP-B Current Condition Start: 05/24/21 15:35 Freq: Status: Active Protocol: Document 05/29/21 09:45 AMB (Rec: 05/29/21 10:16 AMB [id number]) Current Condition History of Current Condition Onset Date chronic Current Complaints urinary urgency/frequency lindy when leaving the house History of Current Condition Summer attends physical therapy with a history of urgency, frequency, stress urinary incontinence, constipation, and pelvic pain. Her biggest concern is the urgency and frequency associated with leaving the house. She states she had a lot of rules about bathrooming as a child. She reports stress and anxiety, a difficult marriage, now . She did have two babies and sx seemed to worsen after the second baby which was over 10# and both deliveries were vaginal. She reports she is big water drinker. Morning coffee with milk, milk is an irritant for her and she drinks it in order to manage her constipation. She reports in order to leave the house sometimes she goes to the bathroom 10-15x before leaving. For example recently her son had an appt in [facility] and she didn't go to the bathroom as much before leaving due to time restraints and had a heavy pressure in bladder and leaking uses a maxi pad but only wears when going out until she urinated after the appointment. Only goes multiple times if she's leaving the house. Does have pelvic pain history. Does feel like urine trickles out when standing up after urinating. Constipation if doesn't drink a little bit of milk, has splinted vaginally historically due to constipation. Pt reports burning/discomfort/ difficulty relaxing with doing a kegel. Treatment Goals Patient/Caregiver Goals Be able to leave the house without urinating multiple times Personal Factors Other Personal Factors That May Effect Hx of trauma, anxiety Therapy/Recovery PT-OP-C Subjective Start: 05/24/21 15:35 Freq: Status: Active Protocol: Document 06/26/21 11:15 AMB (Rec: 06/26/21 11:38 AMB [id number]) OP-PT Subjective Patient Comments Patient Comments Definitely more tension in pelvic floor this week, started cycle, having a stressful time with son, noticing the feeling of having to push the urine out. PT-OP-I Pelvic Floor Start: 05/24/21 15:35 Freq: Status: Active Protocol: Document 05/29/21 09:45 AMB (Rec: 06/02/21 10:59 AMB [email or web address]) Pelvic Floor Assessment Urine Pelvic Floor Surgery No Urinary Symptoms Dysuria,Urge Sensation,Falling Out Feeling/Heavy,Pain Leakage Size Medium Leakage Cause Lifting,Sneeze,Urge Other Leakage Causes laughter Voiding Frequency many times before leaving the house, then can hold a couple hours Nocturia 0 Bowel Bowel Symptoms Constipation Other Bowel Symptoms drinks milk to manage constipation Bowel Movement Frequency 1 [place] Stool Chart Type 1-7 4 Comments Pelvic Floor Comments did not do an internal assessment today due to Summer 's obvious anxiety and history of pain. Chose rather to discuss behavioral modifications and get a full history. She is still very worried about an internal exam , although did recently have a pap that she was able to tolerate well. PT-OP-Q Treatments Start: 05/24/21 15:35 Freq: Status: Active Protocol: Document 06/26/21 11:15 AMB (Rec: 06/26/21 14:20 AMB [email or web address]) Therapeutic Exercises Supine Exercises 4 Supine Exercise Name diphragmatic breathing Comments also discussed nasal breathing , counting breaths for meditation 3 Supine Exercise Name bridge Reps/Minutes 2x10 2 Supine Exercise Name hamstring/adductor stretch with strap Reps/Minutes 30x2 1 Supine Exercise Name pelvic tilt Reps/Minutes 10 Comments stopped to being uncomfortable Other Exercises kip pose Reps/Minutes 30x4 PT-OP-T Assessment and Plan Start: 05/24/21 15:35 Freq: Status: Active Protocol: Document 06/26/21 11:15 AMB (Rec: 06/26/21 11:38 AMB [id number]) Physical Therapy Assessment Assessment Summary Assessment Pt had a difficult time with pelvic tilts not my favorite , increased fidgeting and seemed psychologically uncomfortable with exercise so it was stopped. Did work on lumbar rotation, hamstring and adductor stretching. Discussed possibility of therapy for trauma, as this is a huge factor in her pain/ function. Physical Therapy Plan Next Visit Focus/Plan Next Note Type Treatment Note Next Visit Plan Anxiety reduction, breathing, self massage for abdominal pain
--- NOTE | 2021-07-09 16:27 | PT.OTN ---
Current Diagnoses Dyspareunia not due to a substance or known physiological condition (07/09/21) Unspecified urinary incontinence (07/09/21) Urgency of urination (07/09/21) Physical Therapy Treatment Note PT-OP-A Visit Information Start: 05/24/21 15:35 Freq: Status: Active Protocol: Document 07/09/21 14:30 AMB (Rec: 07/09/21 16:04 AMB [email or web address]) Out-Patient Physical Therapy Visit Information Visit Information Visit Type Treatment Note Visit Start Time 14:30 Visit Stop Time 15:15 Total Visit Minutes 45 Visit Number 5 PT-OP-B Current Condition Start: 05/24/21 15:35 Freq: Status: Active Protocol: Document 05/29/21 09:45 AMB (Rec: 05/29/21 10:16 AMB [id number]) Current Condition History of Current Condition Onset Date chronic Current Complaints urinary urgency/frequency lindy when leaving the house History of Current Condition Summer attends physical therapy with a history of urgency, frequency, stress urinary incontinence, constipation, and pelvic pain. Her biggest concern is the urgency and frequency associated with leaving the house. She states she had a lot of rules about bathrooming as a child. She reports stress and anxiety, a difficult marriage, now . She did have two babies and sx seemed to worsen after the second baby which was over 10# and both deliveries were vaginal. She reports she is big water drinker. Morning coffee with milk, milk is an irritant for her and she drinks it in order to manage her constipation. She reports in order to leave the house sometimes she goes to the bathroom 10-15x before leaving. For example recently her son had an appt in [facility] and she didn't go to the bathroom as much before leaving due to time restraints and had a heavy pressure in bladder and leaking uses a maxi pad but only wears when going out until she urinated after the appointment. Only goes multiple times if she's leaving the house. Does have pelvic pain history. Does feel like urine trickles out when standing up after urinating. Constipation if doesn't drink a little bit of milk, has splinted vaginally historically due to constipation. Pt reports burning/discomfort/ difficulty relaxing with doing a kegel. Treatment Goals Patient/Caregiver Goals Be able to leave the house without urinating multiple times Personal Factors Other Personal Factors That May Effect Hx of trauma, anxiety Therapy/Recovery PT-OP-C Subjective Start: 05/24/21 15:35 Freq: Status: Active Protocol: Document 07/09/21 14:30 AMB (Rec: 07/10/21 16:27 AMB [email or web address]) OP-PT Subjective Patient Comments Patient Comments Pt reports it has been a better week. Did go back once to come to PT today but other than that hasn't repeat voided today. PT-OP-I Pelvic Floor Start: 05/24/21 15:35 Freq: Status: Active Protocol: Document 05/29/21 09:45 AMB (Rec: 06/02/21 10:59 AMB [email or web address]) Pelvic Floor Assessment Urine Pelvic Floor Surgery No Urinary Symptoms Dysuria,Urge Sensation,Falling Out Feeling/Heavy,Pain Leakage Size Medium Leakage Cause Lifting,Sneeze,Urge Other Leakage Causes laughter Voiding Frequency many times before leaving the house, then can hold a couple hours Nocturia 0 Bowel Bowel Symptoms Constipation Other Bowel Symptoms drinks milk to manage constipation Bowel Movement Frequency 1 [place] Stool Chart Type 1-7 4 Comments Pelvic Floor Comments did not do an internal assessment today due to Kimi 's obvious anxiety and history of pain. Chose rather to discuss behavioral modifications and get a full history. She is still very worried about an internal exam , although did recently have a pap that she was able to tolerate well. PT-OP-Q Treatments Start: 05/24/21 15:35 Freq: Status: Active Protocol: Document 07/09/21 14:30 AMB (Rec: 07/10/21 16:27 AMB [email or web address]) Therapeutic Exercises Supine Exercises 4 Supine Exercise Name diphragmatic breathing Comments also discussed nasal breathing , counting breaths for meditation 2 Supine Exercise Name hamstring/adductor stretch with strap Reps/Minutes 30x2 double knee to chest Reps/Minutes 30x3 Sitting Exercises mal[place] ball Sitting Exercise Name pelvic circles, pelvic tilts, TA march Other Exercises rock back Reps/Minutes 10 kip pose Reps/Minutes 30x4 PT-OP-T Assessment and Plan Start: 05/24/21 15:35 Freq: Status: Active Protocol: Document 07/09/21 14:30 AMB (Rec: 07/10/21 16:27 AMB [email or web address]) Physical Therapy Assessment Assessment Summary Assessment kimi is doing better with less stress and is doing her exercises. Encouraged her to continue with PT to make sure improvement continue into her next cycle. Physical Therapy Plan Next Visit Focus/Plan Next Note Type Treatment Note Next Visit Plan Anxiety reduction, breathing, self massage for abdominal pain
--- NOTE | 2021-07-17 15:56 | PT.OTN ---
Current Diagnoses Dyspareunia not due to a substance or known physiological condition (07/17/21) Unspecified urinary incontinence (07/17/21) Urgency of urination (07/17/21) Physical Therapy Treatment Note PT-OP-A Visit Information Start: 05/24/21 15:35 Freq: Status: Active Protocol: Document 07/17/21 13:45 AMB (Rec: 07/17/21 14:36 AMB [id number]) Out-Patient Physical Therapy Visit Information Visit Information Visit Type Treatment Note Visit Start Time 13:45 Visit Stop Time 14:30 Total Visit Minutes 45 Visit Number 6 PT-OP-B Current Condition Start: 05/24/21 15:35 Freq: Status: Active Protocol: Document 05/29/21 09:45 AMB (Rec: 05/29/21 10:16 AMB [id number]) Current Condition History of Current Condition Onset Date chronic Current Complaints urinary urgency/frequency lindy when leaving the house History of Current Condition Summer attends physical therapy with a history of urgency, frequency, stress urinary incontinence, constipation, and pelvic pain. Her biggest concern is the urgency and frequency associated with leaving the house. She states she had a lot of rules about bathrooming as a child. She reports stress and anxiety, a difficult marriage, now . She did have two babies and sx seemed to worsen after the second baby which was over 10# and both deliveries were vaginal. She reports she is big water drinker. Morning coffee with milk, milk is an irritant for her and she drinks it in order to manage her constipation. She reports in order to leave the house sometimes she goes to the bathroom 10-15x before leaving. For example recently her son had an appt in [facility] and she didn't go to the bathroom as much before leaving due to time restraints and had a heavy pressure in bladder and leaking uses a maxi pad but only wears when going out until she urinated after the appointment. Only goes multiple times if she's leaving the house. Does have pelvic pain history. Does feel like urine trickles out when standing up after urinating. Constipation if doesn't drink a little bit of milk, has splinted vaginally historically due to constipation. Pt reports burning/discomfort/ difficulty relaxing with doing a kegel. Treatment Goals Patient/Caregiver Goals Be able to leave the house without urinating multiple times Personal Factors Other Personal Factors That May Effect Hx of trauma, anxiety Therapy/Recovery PT-OP-C Subjective Start: 05/24/21 15:35 Freq: Status: Active Protocol: Document 07/17/21 13:45 AMB (Rec: 07/17/21 15:56 AMB [email or web address]) OP-PT Subjective Patient Comments Patient Comments Pt reports she has had a harder time this week with urgency. She feels pelvic pressure (not abdominal) and associates this with the urgency. PT-OP-I Pelvic Floor Start: 05/24/21 15:35 Freq: Status: Active Protocol: Document 05/29/21 09:45 AMB (Rec: 06/02/21 10:59 AMB [email or web address]) Pelvic Floor Assessment Urine Pelvic Floor Surgery No Urinary Symptoms Dysuria,Urge Sensation,Falling Out Feeling/Heavy,Pain Leakage Size Medium Leakage Cause Lifting,Sneeze,Urge Other Leakage Causes laughter Voiding Frequency many times before leaving the house, then can hold a couple hours Nocturia 0 Bowel Bowel Symptoms Constipation Other Bowel Symptoms drinks milk to manage constipation Bowel Movement Frequency 1 [place] Stool Chart Type 1-7 4 Comments Pelvic Floor Comments did not do an internal assessment today due to Summer 's obvious anxiety and history of pain. Chose rather to discuss behavioral modifications and get a full history. She is still very worried about an internal exam , although did recently have a pap that she was able to tolerate well. PT-OP-Q Treatments Start: 05/24/21 15:35 Freq: Status: Active Protocol: Document 07/17/21 13:45 AMB (Rec: 07/17/21 15:54 AMB [email or web address]) Therapeutic Exercises Supine Exercises 6 Supine Exercise Name LTR Reps/Minutes 10 5 Supine Exercise Name roll in roll out Equipment Used #1 t band latex free Reps/Minutes 10 Comments with stretch/relax between pelvic floor contractions 2 Supine Exercise Name hamstring/adductor stretch with strap Reps/Minutes 30x2 double knee to chest Reps/Minutes 30x3 PT-OP-T Assessment and Plan Start: 05/24/21 15:35 Freq: Status: Active Protocol: Document 07/17/21 13:45 AMB (Rec: 07/17/21 15:54 AMB [email or web address]) Physical Therapy Assessment Assessment Summary Assessment Lisa tolerated pelvic floor strengthening with long rest/ stretch period between seemingly well. Will need to follwo up to see how she tolerated it after the session . Physical Therapy Plan Next Visit Focus/Plan Next Note Type Treatment Note Next Visit Plan Anxiety reduction, breathing, self massage for abdominal pain
--- NOTE | 2021-07-25 16:00 | PT.OTN ---
Current Diagnoses Dyspareunia not due to a substance or known physiological condition (07/25/21) Unspecified urinary incontinence (07/25/21) Urgency of urination (07/25/21) Physical Therapy Treatment Note PT-OP-A Visit Information Start: 05/24/21 15:35 Freq: Status: Active Protocol: Document 07/25/21 13:45 AMB (Rec: 07/25/21 14:29 AMB [id number]) Out-Patient Physical Therapy Visit Information Visit Information Visit Type Treatment Note Visit Start Time 13:45 Visit Stop Time 14:30 Total Visit Minutes 45 Visit Number 7 PT-OP-B Current Condition Start: 05/24/21 15:35 Freq: Status: Active Protocol: Document 05/29/21 09:45 AMB (Rec: 05/29/21 10:16 AMB [id number]) Current Condition History of Current Condition Onset Date chronic Current Complaints urinary urgency/frequency lindy when leaving the house History of Current Condition Summer attends physical therapy with a history of urgency, frequency, stress urinary incontinence, constipation, and pelvic pain. Her biggest concern is the urgency and frequency associated with leaving the house. She states she had a lot of rules about bathrooming as a child. She reports stress and anxiety, a difficult marriage, now . She did have two babies and sx seemed to worsen after the second baby which was over 10# and both deliveries were vaginal. She reports she is big water drinker. Morning coffee with milk, milk is an irritant for her and she drinks it in order to manage her constipation. She reports in order to leave the house sometimes she goes to the bathroom 10-15x before leaving. For example recently her son had an appt in [facility] and she didn't go to the bathroom as much before leaving due to time restraints and had a heavy pressure in bladder and leaking uses a maxi pad but only wears when going out until she urinated after the appointment. Only goes multiple times if she's leaving the house. Does have pelvic pain history. Does feel like urine trickles out when standing up after urinating. Constipation if doesn't drink a little bit of milk, has splinted vaginally historically due to constipation. Pt reports burning/discomfort/ difficulty relaxing with doing a kegel. Treatment Goals Patient/Caregiver Goals Be able to leave the house without urinating multiple times Personal Factors Other Personal Factors That May Effect Hx of trauma, anxiety Therapy/Recovery PT-OP-C Subjective Start: 05/24/21 15:35 Freq: Status: Active Protocol: Document 07/25/21 13:45 AMB (Rec: 07/25/21 14:29 AMB [id number]) OP-PT Subjective Patient Comments Patient Comments Less urgency last week. Heavy cycle recently. PT-OP-I Pelvic Floor Start: 05/24/21 15:35 Freq: Status: Active Protocol: Document 05/29/21 09:45 AMB (Rec: 06/02/21 10:59 AMB [email or web address]) Pelvic Floor Assessment Urine Pelvic Floor Surgery No Urinary Symptoms Dysuria,Urge Sensation,Falling Out Feeling/Heavy,Pain Leakage Size Medium Leakage Cause Lifting,Sneeze,Urge Other Leakage Causes laughter Voiding Frequency many times before leaving the house, then can hold a couple hours Nocturia 0 Bowel Bowel Symptoms Constipation Other Bowel Symptoms drinks milk to manage constipation Bowel Movement Frequency 1 [place] Stool Chart Type 1-7 4 Comments Pelvic Floor Comments did not do an internal assessment today due to Summer 's obvious anxiety and history of pain. Chose rather to discuss behavioral modifications and get a full history. She is still very worried about an internal exam , although did recently have a pap that she was able to tolerate well. PT-OP-Q Treatments Start: 05/24/21 15:35 Freq: Status: Active Protocol: Document 07/25/21 13:45 AMB (Rec: 07/25/21 14:29 AMB [id number]) Therapeutic Exercises Supine Exercises 6 Supine Exercise Name LTR Reps/Minutes 10 5 Supine Exercise Name roll in roll out Equipment Used #1 t band latex free Reps/Minutes 10 Comments with stretch/relax between pelvic floor contractions 2 Supine Exercise Name hamstring/adductor stretch with strap Reps/Minutes 30x2 double knee to chest Reps/Minutes 30x3 PT-OP-T Assessment and Plan Start: 05/24/21 15:35 Freq: Status: Active Protocol: Document 07/25/21 13:45 AMB (Rec: 07/25/21 14:29 AMB [id number]) Physical Therapy Assessment Goals urinary frequency Impairment when leaving the house Jail Goal (LTG) Summer will void urine once before leaving the house. LTG Duration 12 weeks pelvic floor strength Impairment tightness/weakness Short Term Goal (STG) Summer will be independent with a HEP to stretch and relax her pelvic floor muscles . STG Duration 6 weeks Jail Goal (LTG) Summer will be able to both contract and relax her pelvic floormuscles on command. LTG Duration 12 weeks continence Impairment urge/stress Short Term Goal (STG) Summer will report reduced feeling of pelvic heaviness after voiding urine. STG Duration 6 weeks Fixed Income Analyst Goal (LTG) Summer will be able to laugh without leaking urine. LTG Duration 12 weeks Assessment Summary Assessment Summer had a better week this week. No heaviness reported, better able to contract pelvic floor muscles without feeling cramping/pain. Did need to void 2x/before coming to PT. Physical Therapy Plan Next Visit Focus/Plan Next Note Type Treatment Note Next Visit Plan Anxiety reduction, breathing, self massage for abdominal pain
--- NOTE | 2021-07-31 14:52 | PT.OTN ---
Current Diagnoses Dyspareunia not due to a substance or known physiological condition (07/31/21) Unspecified urinary incontinence (07/31/21) Urgency of urination (07/31/21) Physical Therapy Treatment Note PT-OP-A Visit Information Start: 05/24/21 15:35 Freq: Status: Active Protocol: Document 07/31/21 13:50 AMB (Rec: 07/31/21 14:52 AMB [id number]) Out-Patient Physical Therapy Visit Information Visit Information Visit Type Treatment Note Visit Start Time 13:45 Visit Stop Time 14:30 Total Visit Minutes 45 Visit Number 8 PT-OP-B Current Condition Start: 05/24/21 15:35 Freq: Status: Active Protocol: Document 05/29/21 09:45 AMB (Rec: 05/29/21 10:16 AMB [id number]) Current Condition History of Current Condition Onset Date chronic Current Complaints urinary urgency/frequency lindy when leaving the house History of Current Condition Summer attends physical therapy with a history of urgency, frequency, stress urinary incontinence, constipation, and pelvic pain. Her biggest concern is the urgency and frequency associated with leaving the house. She states she had a lot of rules about bathrooming as a child. She reports stress and anxiety, a difficult marriage, now . She did have two babies and sx seemed to worsen after the second baby which was over 10# and both deliveries were vaginal. She reports she is big water drinker. Morning coffee with milk, milk is an irritant for her and she drinks it in order to manage her constipation. She reports in order to leave the house sometimes she goes to the bathroom 10-15x before leaving. For example recently her son had an appt in [facility] and she didn't go to the bathroom as much before leaving due to time restraints and had a heavy pressure in bladder and leaking uses a maxi pad but only wears when going out until she urinated after the appointment. Only goes multiple times if she's leaving the house. Does have pelvic pain history. Does feel like urine trickles out when standing up after urinating. Constipation if doesn't drink a little bit of milk, has splinted vaginally historically due to constipation. Pt reports burning/discomfort/ difficulty relaxing with doing a kegel. Treatment Goals Patient/Caregiver Goals Be able to leave the house without urinating multiple times Personal Factors Other Personal Factors That May Effect Hx of trauma, anxiety Therapy/Recovery PT-OP-C Subjective Start: 05/24/21 15:35 Freq: Status: Active Protocol: Document 07/31/21 13:50 AMB (Rec: 07/31/21 14:52 AMB [id number]) OP-PT Subjective Patient Comments Patient Comments Lisa is hoping that this will be her last appt due to covid concern and feeling that she is ready to be independent with her HEP. PT-OP-I Pelvic Floor Start: 05/24/21 15:35 Freq: Status: Active Protocol: Document 05/29/21 09:45 AMB (Rec: 06/02/21 10:59 AMB [id number]) Pelvic Floor Assessment Urine Pelvic Floor Surgery No Urinary Symptoms Dysuria,Urge Sensation,Falling Out Feeling/Heavy,Pain Leakage Size Medium Leakage Cause Lifting,Sneeze,Urge Other Leakage Causes laughter Voiding Frequency many times before leaving the house, then can hold a couple hours Nocturia 0 Bowel Bowel Symptoms Constipation Other Bowel Symptoms drinks milk to manage constipation Bowel Movement Frequency 1 [place] Stool Chart Type 1-7 4 Comments Pelvic Floor Comments did not do an internal assessment today due to Lisa 's obvious anxiety and history of pain. Chose rather to discuss behavioral modifications and get a full history. She is still very worried about an internal exam , although did recently have a pap that she was able to tolerate well. PT-OP-Q Treatments Start: 05/24/21 15:35 Freq: Status: Active Protocol: Document 07/31/21 13:50 AMB (Rec: 07/31/21 14:52 AMB [id number]) Therapeutic Exercises Supine Exercises 5 Supine Exercise Name roll in roll out Equipment Used #1 t band latex free Reps/Minutes 10 Comments with stretch/relax between pelvic floor contractions 2 Supine Exercise Name hamstring/adductor stretch with strap Reps/Minutes 30x2 Standing Exercises 1 Standing Exercise Name tried standing kegel but that increased bladder spasm Self-Care/Home Management Treatment Education Other Education Discussed urinary frequency and timing of void schedule, bladder diary. Working to stop going JIC so as not to train bladder that it needs to do that. PT-OP-T Assessment and Plan Start: 05/24/21 15:35 Freq: Status: Active Protocol: Document 07/31/21 13:50 AMB (Rec: 07/31/21 14:52 AMB [id number]) Physical Therapy Assessment Goals urinary frequency Impairment when leaving the house Half-Way Goal (LTG) Summer will void urine once before leaving the house. USALLY AT LEAST TWICE, BUT NOT BAD IT HAS BEEN WHICH WAS UP TO 6 TIMES LTG Duration PROGRESS MADE pelvic floor strength Impairment tightness/weakness Short Term Goal (STG) Lisa will be independent with a HEP to stretch and relax her pelvic floor muscles . STG Duration MET Half-Way Goal (LTG) Summer will be able to both contract and relax her pelvic floormuscles on command. LTG Duration MET continence Impairment urge/stress Short Term Goal (STG) Summer will report reduced feeling of pelvic heaviness after voiding urine. STG Duration PARTIALLY MET Half-Way Goal (LTG) Summer will be able to laugh without leaking urine. LTG Duration PARTIALLY MET Assessment Summary Assessment Lisa would like this to be her last appointment. She has met some of her goals. She states it is a big deal as far as anxiety to get here, and then it is also challenging with the new covid variant. She will continue with her exercises and consider a timed voiding schedule. She would be welcome to return if needed in the future.
== END 2021-08-01 09:17 ==
LOC: PHYS 13:45
PROVIDERS: Family Provider Nurse Practitioner; PCP Nurse Practitioner; Referring Provider Nurse Practitioner; Visit Provider Nurse Practitioner
DX: R32 Unspecified urinary incontinence (principal); R39.15 Urgency of urination; F52.6 Dyspareunia not due to a substance or known physiological condition
CPT/HCPCS: 97110; 97162; 97535

== ENCOUNTER → 2021-08-21 11:24 | Outpatient (CLI) | payer OTHER, MEDICAID, SELFPAY ==
[2021-08-21 13:01] LABS: Alanine Aminotransferase 24 IU/L (<35); Albumin 4.5 g/dL (3.5-5.0); Albumin Globulin Ratio 1.3 (1.0-2.8); Alkaline Phosphatase 61 U/L (38-126); Aspartate Aminotransferase 23 IU/L (14-36); BUN Creatinine Ratio 23.4 (6-22); Bilirubin Total 0.4 mg/dL (0.2-1.3); Blood Urea Nitrogen 18 mg/dL (7-17); Calcium 9.3 mg/dL (8.4-10.2); Carbon Dioxide 25 mmol/L (22-32); Chloride 103 mmol/L (98-107); Cholesterol 302 mg/dL (140-199); Estimated Glomerular Filt Rate > 60.0 mL/min (>60); Globulin 3.4 g/dL (1.7-4.1); Glucose 100 mg/dL (70-100); HDL Cholesterol 60 mg/dL (40-60); HEMOLYSIS < 15 (0-50); LDL Cholesterol Calculated 186 mg/dL (<100); Potassium 4.2 mmol/L (3.4-5.1); Sodium 137 mmol/L (137-145); Total Protein 7.9 g/dL (6.3-8.2); Triglycerides 280 mg/dL (35-150)
[2021-08-21 13:10] LABS: Hemoglobin A1C% w Est Avg Glu 5.6 % (4.0-6.0)
== END ==
PROVIDERS: Family Provider Nurse Practitioner; PCP Nurse Practitioner; Referring Provider Nurse Practitioner; Visit Provider Nurse Practitioner
DX: E78.2 Mixed hyperlipidemia (principal); R73.01 Impaired fasting glucose
CPT/HCPCS: 36415; 80053; 80061; 83036

== ENCOUNTER → 2021-11-25 09:16 | Outpatient (CLI) | payer OTHER, MEDICAID, SELFPAY ==
[2021-11-25 12:19] LABS: Cholesterol 293 mg/dL (140-199); Glucose 96 mg/dL (70-100); HDL Cholesterol 67 mg/dL (40-60); LDL Cholesterol Calculated 174 mg/dL (<100); Triglycerides 258 mg/dL (35-150)
== END ==
PROVIDERS: Family Provider Nurse Practitioner; PCP Nurse Practitioner; Referring Provider Nurse Practitioner; Visit Provider Nurse Practitioner
DX: R73.01 Impaired fasting glucose (principal); E78.2 Mixed hyperlipidemia; Z79.899 Other long term (current) drug therapy
CPT/HCPCS: 36415; 80061; 82947

== ENCOUNTER → 2021-11-26 11:52 | Outpatient (CLI) | payer OTHER, MEDICAID, SELFPAY ==
--- NOTE | 2021-11-26 | DI.MG.S_ITS ---
BILATERAL DIGITAL DIAGNOSTIC MAMMOGRAM 3D/2D SHORT-TERM FOLLOW-UP: 11/26/2021 CLINICAL: Short term follow up of the left breast, due for bilateral imaging. Comparison is made to exams dated: 05/06/2021 mammogram, 04/17/2021 mammogram, and 01/31/2016 mammogram - [facility]. The tissue of both breasts is heterogeneously dense. This may lower the sensitivity of mammography. There are grouped fine calcifications in the left breast central to the nipple anterior depth. These are not significantly changed. No other significant masses, calcifications, or other findings are seen in either breast. IMPRESSION: PROBABLY BENIGN The grouped fine calcifications in the left breast are probably benign. A follow-up mammogram in 6 months is recommended. A follow-up mammogram in 6 months is recommended to demonstrate stability. This exam was interpreted at Station ID: [id number]. NOTE: For mammograms, a report in lay terms will be sent to the patient. Approximately 15% of breast malignancies will not be visualized mammographically. In the management of a palpable breast mass, a negative mammogram must not discourage biopsy of a clinically suspicious lesion. Electronically Signed By: Evans gtz/:11/26/2021 13:18:14 letter sent: Followup Recommended ACR BI-RADS Category 3: Probably benign [id number]
== END ==
PROVIDERS: Family Provider Nurse Practitioner; PCP Nurse Practitioner; Referring Provider Nurse Practitioner; Visit Provider Nurse Practitioner
DX: R92.8 Other abnormal and inconclusive findings on diagnostic imaging of breast (principal); R92.1 Mammographic calcification found on diagnostic imaging of breast
CPT/HCPCS: 77066; G0279

== ENCOUNTER → 2022-01-14 09:16 | Outpatient (CLI) | payer OTHER, MEDICAID, SELFPAY ==
[2022-01-14 10:19] LABS: Add Manual Diff / Slide Review NO; Basophils Absolute Auto 0 /uL (0-100); Basophils Percent Auto 0.3 % (0-2); Eosinophils Absolute Auto 100 /uL (0-450); Eosinophils Percent Auto 0.6 % (2-4); Hematocrit 36.9 % (36-46); Hemoglobin 12.3 g/dL (12.0-16.0); Lymphocytes Absolute Auto 1400 /uL (1100-4500); Lymphocytes Percent Auto 12.5 % (25-40); Mean Corpuscular HGB Conc 33.3 % (30-36); Mean Corpuscular Hemoglobin 26.9 PG (26-34); Monocytes Absolute Auto 800 /uL (0-900); Neutrophils Absolute Auto 8900 /uL (1500-7000); Neutrophils Percent Auto 79.6 % (50-75); Platelet Count 356 X10^3/uL (150-400); Red Blood Cell Count 4.55 X10^6/uL (4.0-5.2); Red Cell Distribution Width 16.3 % (11.6-14.8); White Blood Cell Count 11.2 X10^3/uL (4.5-11.0)
[2022-01-14 11:10] LABS: Alanine Aminotransferase 20 IU/L (<35); Albumin 4.7 g/dL (3.5-5.0); Albumin Globulin Ratio 1.5 (1.0-2.8); Alkaline Phosphatase 62 U/L (38-126); Aspartate Aminotransferase 21 IU/L (14-36); Bilirubin Total 0.2 mg/dL (0.2-1.3); Blood Urea Nitrogen 14 mg/dL (7-17); Calcium 9.3 mg/dL (8.4-10.2); Carbon Dioxide 26 mmol/L (22-32); Chloride 101 mmol/L (98-107); Estimated Glomerular Filt Rate > 60 mL/min (>60); Globulin 3.2 g/dL (1.7-4.1); Glucose 110 mg/dL (70-100); HEMOLYSIS < 15 (0-50); Potassium 4.4 mmol/L (3.4-5.1); Sodium 135 mmol/L (137-145); Total Protein 7.9 g/dL (6.3-8.2)
[2022-01-14 11:25] LABS: Follicle Stimulating Hormone 5.69 mIU/mL
[2022-01-14 11:40] LABS: TSH w/ Reflex to FT4 1.69 uIU/mL (0.47-4.68)
[2022-01-14 11:43] LABS: Testosterone 43.4 ng/dL (5.71-77.0)
== END ==
PROVIDERS: Family Provider Nurse Practitioner; PCP Nurse Practitioner; Referring Provider Pediatrics; Visit Provider Pediatrics
DX: N92.1 Excessive and frequent menstruation with irregular cycle (principal)
CPT/HCPCS: 36415; 80053; 83001; 83002; 84403; 84443; 85025

== ENCOUNTER → 2022-02-06 07:08 | Outpatient (CLI) | payer OTHER, MEDICAID, SELFPAY ==
--- NOTE | 2022-02-06 07:09 | DI.US.S_ITS ---
PROCEDURE: US PELVIC COMPLETE INDICATIONS: irregular heavy menses TECHNIQUE: Real-time scanning was performed of the pelvic organs, with image documentation. Additional endovaginal scanning was necessary due to incomplete visualization of the adnexal and endometrial structures by transabdominal scanning. COMPARISON: None. FINDINGS: Uterus: Uterus is anteverted and enlarged measures 10.5 x 5.6 x 6.8 cm in size. The myometrium is heterogeneous. 1.8 x 1.7 x 2.6 cm intramural fibroid is seen in left anterior myometrium. The endometrium measures 1.3 cm combined thickness. No gross endometrial mass or fluid is seen. Ovaries: The right ovary measures 4.9 x 2 x 2.4 cm. The left ovary measures 3.6 x 2.6 x 3.8 cm. The ovaries have a normal sonographic appearance. Less than 12 follicles can be seen in each ovary. Simple cyst is seen in left ovary measures 3 x 2.4 x 2.5 cm in size. No adnexal masses are seen. Other: No pathologic free abdominal or pelvic fluid. IMPRESSION: 1. Enlarged uterus with single uterine fibroid as described above. No endometrial mass or fluid. 2. Simple cyst in left ovary measures 3 x 2.4 x 2.5 cm in size. No solid appearing ovarian lesion. We strive to produce accurate, complete, and clear reports of imaging services. To assist us in improving patient care, this report was composed using standard report templates and voice recognition software. Therefore, it may contain abnormal punctuation, insertions and/or omissions. Occasional wrong-word or sound-alike substitutions may occur. Though we review the report and make efforts to correct it, we do recommend that the report be read carefully in proper context to recognize any text inaccuracies. Dictated by: Silvestre Harvey M.D. on 02/06/2022 at 16:19 Approved by: Silvestre Harvey M.D. on 02/06/2022 at 16:22
[2022-02-06 09:15] LABS: Appearance Urine UA CLEAR; Bilirubin Urine UA NEGATIVE (NEGATIVE); Color Urine UA YELLOW; Glucose Urine UA NEGATIVE (Negative); Ketones Urine UA NEGATIVE (NEGATIVE); Leukocyte Esterase Urine UA NEGATIVE (NEGATIVE); Nitrite Urine UA NEGATIVE (Negative); Occult Blood Urine UA NEGATIVE (Negative); Protein Urine UA NEGATIVE (Negative); Specific Gravity Urine UA <=1.005 (1.000-1.035); Urobilinogen Urine UA 0.2 E.U./dL (0.2)
[2022-02-06 09:18] LABS: Add Manual Diff / Slide Review NO; Basophils Absolute Auto 0 /uL (0-100); Basophils Percent Auto 0.5 % (0-2); Eosinophils Absolute Auto 100 /uL (0-450); Eosinophils Percent Auto 1.1 % (2-4); Hematocrit 29.2 % (36-46); Hemoglobin 9.8 g/dL (12.0-16.0); Lymphocytes Absolute Auto 1400 /uL (1100-4500); Mean Corpuscular HGB Conc 33.6 % (30-36); Mean Corpuscular Hemoglobin 26.1 PG (26-34); Mean Corpuscular Volume 77.7 fL (80-100); Monocytes Absolute Auto 600 /uL (0-900); Monocytes Percent Auto 8.1 % (3-14); Neutrophils Absolute Auto 4900 /uL (1500-7000); Neutrophils Percent Auto 70.3 % (50-75); Platelet Count 374 X10^3/uL (150-400); Red Blood Cell Count 3.75 X10^6/uL (4.0-5.2); Red Cell Distribution Width 16.7 % (11.6-14.8)
[2022-02-06 09:21] LABS: pH Urine UA 6.5 (4.5-8.0)
[2022-02-06 09:39] LABS: C-Reactive Protein Quant < 0.5 mg/dL (<1.0); Erythrocyte Sedimentation Rate 31 MM/HR (0-20); Lactate Dehydrogenase 457 U/L (313-618); Uric Acid 3.9 mg/dL (2.5-6.2)
[2022-02-06 09:40] LABS: Bacteria Urine Occasional (0-1); Culture Indicated Urine Cult Not Indicated; RBC Urine None Seen (0-5/HPF); Squamous Epithelial Cell Urine 0-1 /HPF (0-5/HPF); WBC Urine None Seen (0-5/HPF)
[2022-02-06 09:40] LABS: Rheumatoid Factor < 8.6 IU/mL (<12.0)
[2022-02-07 13:37] LABS: Albumin 3.9 g/dL (2.9-4.4); Alpha-1-Globulin 0.2 g/dL (0.0-0.4); Alpha-2-Globulin 0.8 g/dL (0.4-1.0); Gamma Globulin 0.7 g/dL (0.4-1.8); Globulin Total 2.8 g/dL (2.2-3.9); Protein, Total 6.7 g/dL (6.0-8.5)
[2022-02-08 03:39] LABS: Beta-2-Microglobulin 1.1 mg/L (0.6-2.4)
== END ==
PROVIDERS: Family Provider Nurse Practitioner; PCP Nurse Practitioner; Referring Provider Pediatrics; Visit Provider Pediatrics
DX: N92.1 Excessive and frequent menstruation with irregular cycle (principal); N85.2 Hypertrophy of uterus; D25.1 Intramural leiomyoma of uterus; N83.292 Other ovarian cyst, left side; D47.2 Monoclonal gammopathy; D72.829 Elevated white blood cell count, unspecified; R53.82 Chronic fatigue, unspecified; Z80.7 Family history of other malignant neoplasms of lymphoid, hematopoietic and related tissues
CPT/HCPCS: 36415; 76830; 76856; 81001; 82232; 83615; 84155; 84165; 84550; 85025; 85651; 86140; 86430

== ENCOUNTER 2022-03-19 19:10 | Emergency (ER) | payer OTHER, MEDICAID, SELFPAY ==
[2022-03-19] VITALS (9 sets, daily range): BP systolic 146–183; BP diastolic 67–103; PULSE 96–133; RESP 12–23; TEMP 36.9; O2SAT 96–99; BMI 31.7
--- NOTE | 2022-03-19 19:25 | DI.RAD.S_ITS ---
PROCEDURE: XR CHEST 1V INDICATIONS: chest pain TECHNIQUE: One view of the chest was acquired. COMPARISON: [facility], CR, XR CHEST 1V, 09/20/2019, 10:36. FINDINGS: Surgical changes and devices: None. Lungs and pleura: Lungs are clear. No pleural effusions or pneumothorax. Mediastinum: Mediastinal contours appear normal. Heart size is normal. Bones and chest wall: No suspicious bony lesions. Overlying soft tissues appear unremarkable. IMPRESSION: 1. No acute cardiopulmonary disease. Dictated by: Evans Escobar M.D. on 03/19/2022 at 20:07 Approved by: Evans Escobar M.D. on 03/19/2022 at 20:07
--- NOTE | 2022-03-19 19:31 | ED_ITS ---
HPI - Arrhythmia/Palpitations General Chief Complaint: Arrhythmia/Palpitations Stated Complaint: Blood pressure high, 185/124 HR147 Time Seen by Provider: 03/19/22 19:30 History of Present Illness HPI narrative: 47-year-old woman with a history of anxiety, panic tracks, significant anemia for which she received IV iron infusion earlier today. Had a history of over 2 months of vaginal bleeding that was treated with oral TXA effectively likely significantly contributing to the anemia. She has had problems with palpitations, tachycardia and hypertension intermittently over the years. Cardiac workup was done with findings below. 10/21/19 Cardiac Stress Test: Exaggerated hemodynamic response to exercise.? Blood pressure and heart rate were near maximal values within 3 minutes.? Markedly reduced exercise capacity (AMY +25%).? ST deviations in posterior leads that resolved rapidly with rest.? No signs or symptoms of angina. Impression: Intermediate probability for ischemia. With perfusion study showin. ? Normal myocardial perfusion study. 2. ? No evidence for myocardial ischemia or previous myocardial infarction. 3. ? Normal left ventricular systolic function without focal wall motion abnormality. 4. ? Moderately impaired exercise capacity without angina or ECG evidence of ischemia.? She had a somewhat accelerated heart rate response to exercise, suggesting possible reduced cardiovascular fitness. Normal echo. ? She notes that after her iron infusion she was having increasing palpitations some chest tightness and increasing anxiety. She has had all of these symptoms before. She also notes that a close relative had similar symptoms and a large h eart attack a few months ago which was the true prompt for seeking care this evening. As she has been in the emergency room her heart rate and blood pressure are both coming down without additional intervention. She describes no recent fevers, cough, chills. She has had exertional dyspnea that her doctors felt was related to her anemia and that seems to be improving significantly. She does intermittently check blood pressures and has not noted that it has been significantly elevated consistently. She is having no nausea, vomiting, constipation, diarrhea or abdominal pain. Describes no headaches or paresthesias. ? Related Data Home Medications Medication Instructions Recorded Confirmed coenzyme Q10-red yeast rice 25 cap PO BID 08/23/21 03/03/22 mg-600 mg capsule melatonin 10 mg tablet 10 mg PO BEDTIME PRN 08/23/21 03/03/22 olive leaf extract 250 mg capsule 500 mg PO TID 08/23/21 03/03/22 omega-3 fatty acids 1,000 mg 1,000 mg PO BID 08/23/21 03/03/22 capsule (Fish Oil Concentrate) olopatadine 0.2 % eye drops drp ophthalmic (eye) 01/29/22 03/03/22 Previous Rx's Medication Instructions Recorded olopatadine 0.2 % eye drops 1 drp EYE-BOTH DAILY #2.5 mL 11/28/21 (Pataday Once Daily Relief) buspirone 15 mg tablet 15 mg PO BID #180 tabs 01/03/22 tranexamic acid 650 mg tablet 650 mg PO QID #60 tabs 02/06/22 montelukast 10 mg tablet 10 mg PO BEDTIME #90 tabs 03/05/22 naltrexone 50 mg tablet See Rx Instructions PO .COMPLEX 03/05/22 #90 tabs Allergies Allergy/AdvReac Type Severity Reaction Status Date / Time misoprostol AdvReac Intermediate Hypotension Verified 03/05/22 08:51 Review of Systems Review of Systems Narrative: Remainder of complete review of systems is otherwise unremarkable except for that included in the HPI. Patient History Medical History Anemia Contact dermatitis Ganglion cyst of left foot Hearing loss Hyperlipidemia, unspecified Insomnia Irregular menstrual bleeding Mitral regurgitation Mixed hyperlipidemia Prolonged menstruation Restless leg syndrome Seasonal allergies Tricuspid regurgitation Weight gain Family History Father Mental health problem Arthritis Mother Cancer Hyperlipidemia Thyroid disease Migraines Grandfather Heart disease Hyperlipidemia Stroke Grandmother Hypertension Mental health problem Stroke Arthritis Grandfather Heart disease Grandmother Cancer Social History Smoking Status: Never smoker second hand exposure: Yes (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 Able to give a complete and coherent history. Well-nourished well-developed HEENT: Moist mucous membranes, normal sclera with reactive pupils, Neck: No JVD, supple Respiratory: Lungs are clear to auscultation, no wheezing no rales no rhonchi. Full and symmetrical air movement Cardiac: Mild tachycardia but otherwise Regular rate and rhythm no murmurs no bruits Abdomen: Soft, nontender, good bowel tones, no flank pain Skin: Warm and dry, no rashes Neurologic: Grossly neurologically intact with no obvious asymmetries or abn ormalities Extremities: No trauma, well perfused, no lower extremity edema Psych: Cooperative, appropriate insight and affect Course Orders Ordered: ED Orders 03/19/22 19:25 XR chest 1V Stat Complete Blood Count AUTO DIFF Stat Comprehensive Metabolic Panel Stat Lipase Stat Magnesium Stat Partial Thromboplastin Time Stat Prothrombin Time INR Stat Troponin & CK Cardiac Panel Stat EKG-12 Lead Stat Discontinued Medications Diphenhydramine HCl (Diphenhydramine 25 Mg Tablet) 25 mg PO NOW ONE Stop: 03/19/22 20:27 Last Admin: 03/19/22 20:33 Dose: 25 mg Sodium Chloride (Normal Saline 0.9%) 1,000 mls @ 1,000 mls/hr IV BOLUS ONE Stop: 03/19/22 21:25 Last Admin: 03/19/22 20:31 Dose: 1,000 mls/hr Vital Signs Vital signs: Vital Signs - 8 hr 03/19/22 19:21 03/19/22 19:15 03/19/22 19:16 Temperature 98.4 F Pulse Rate 133 H 128 H Respiratory Rate 23 Blood Pressure 183/103 H 183/103 H Pulse Oximetry 99 98 Oxygen Delivery Method Room Air 03/19/22 19:26 03/19/22 19:26 03/19/22 19:30 Temperature Pulse Rate 118 H Respiratory Rate 22 Blood Pressure 179/82 H 165/70 H Pulse Oximetry 97 Oxygen Delivery Method 03/19/22 19:30 03/19/22 20:00 03/19/22 20:00 Temperature Pulse Rate 115 H 115 H Respiratory Rate 12 Blood Pressure 155/73 H Pulse Oximetry 96 97 Oxygen Delivery Method 03/19/22 20:30 03/19/22 20:30 03/19/22 21:00 Temperature Pulse Rate 100 H Respiratory Rate 18 Blood Pressure 146/67 H 148/74 H Pulse Oximetry 97 Oxygen Delivery Method 03/19/22 21:00 Temperature Pulse Rate 101 H Respiratory Rate 21 Blood Pressure Pulse Oximetry 98 Oxygen Delivery Method MDM - Arrhythmia/Palpitations Lab Data Result diagrams: 03/19/22 19:24 03/19/22 19:24 Labs: Lab Results 03/19/22 03/19/22 03/19/22 Range/Units 19:24 19:24 19:24 WBC 9.5 (4.5-11.0) X10^3/uL RBC 5.00 (4.0-5.2) X10^6/uL Hgb 12.8 (12.0-16.0) g/dL Hct 38.7 (36-46) % MCV 77.4 L (80-100) fL MCH 25.6 L (26-34) PG MCHC 33.1 (30-36) % RDW 23.8 H (11.6-14.8) % Plt Count 365 (150-400) X10^3/uL Neut % (Auto) 60.7 (50-75) % Lymph % (Auto) 26.2 (25-40) % [place] % (Auto) 10.5 (3-14) % Eos % (Auto) 1.8 L (2-4) % Baso % (Auto) 0.8 (0-2) % Neut # (Auto) 5800 (4955-3501) /uL Lymph # (Auto) 2500 (9232-0904) /uL [place] # (Auto) 1000 H (0-900) /uL Eos # (Auto) 200 (0-450) /uL Baso # (Auto) 100 (0-100) /uL RBC Morphology See below Hypochromasia 1+ H Microcytosis 1+ H PT 11.7 (10.1-12.7) SECONDS INR 1.0 (0.9-1.3) APTT 37 H (26.4-36.2) SECONDS Sodium 136 L (137-145) mmol/L Potassium 3.5 (3.4-5.1) mmol/L Chloride 103 (98-107) mmol/L Carbon Dioxide 24 (22-32) mmol/L BUN 15 (7-17) mg/dL Creatinine 0.77 (0.52-1.04) mg/dL Estimated GFR > 60 (>60) mL/min BUN/Creatinine Ratio 19.5 (6-22) Glucose 131 H (70-100) mg/dL Calcium 8.9 (8.4-10.2) mg/dL Magnesium 2.0 (1.6-2.3) mg/dL Total Bilirubin 0.2 (0.2-1.3) mg/dL AST 20 (14-36) IU/L ALT 19 (<35) IU/L Alkaline Phosphatase 60 (38-126) U/L Total Creatine Kinase 64 (30-135) U/L CK-MB (CK-2) TNP CK-MB (CK-2) Rel Index TNP Troponin I < 0.012 (0.01-0.034) ng/mL Total Protein 7.8 (6.3-8.2) g/dL Albumin 4.6 (3.5-5.0) g/dL Globulin 3.2 (1.7-4.1) g/dL Albumin/Globulin Ratio 1.4 (1.0-2.8) Lipase 76 (23-300) U/L Imaging Data Chest x-ray: Radiologist's Impresson: FINDINGS:? ? Surgical changes and devices:? None.? ? Lungs and pleura:? Lungs are clear.? No pleural effusions or pneumothorax.? ? Mediastinum:? Mediastinal contours appear normal.? Heart size is normal.? ? Bones and chest wall:? No suspicious bony lesions.? Overlying soft tissues appear unremarkable.? ? IMPRESSION:? ? 1.? No acute cardiopulmonary disease. ? ? ? Dictated by: Evans Escobar M.D. on 03/19/2022 at 20:07 ? ? [facility] Narrative Medical decision making narrative: 47-year-old woman presents with chest tightness, palpitations, hypertension after having an iron infusion today for anemia. Her labs indicate that her iron infusions over the last weeks have been effective and she is no longer anemic. She also has significant anxiety. She took Benadryl prior to the iron infusion typically uses Benadryl to help with anxiety. She was given additional 25 mg orally along with 1 L of normal saline. Her blood pressure and heart rate have come down nicely with no additional intervention. Lab work is reassuring. There is no evidence of hypertensive crisis, flash pulmonary edema, acute coronary syndrome, pulmonary effusions or infiltrates. Wondering if she is having a mild reaction to her iron infusion that that exacerbated her anxiety. At this time. She is feeling back to her baseline, heart rate and blood pressure in to appropriate levels and she is safe for home discharge. I have asked that she check blood pressures regularly, she does have a home blood pressure cuff. She may be an excellent candidate for daily propranolol for both anxiety and blood pressure. Discharge Plan Departure Patient Disposition: Home Clinical Impression: Anxiety, Tachycardia Hypertension Qualifiers: Hypertension type: unspecified Qualified Code(s): I10 - Essential (primary) hypertension Instructions: DI for High Blood Pressure, DI for Tachycardia Activity Restrictions/Additional Instructions: Thank you for coming in today Your workup was very reassuring. There is no evidence of heart attack or heart attack like syndrome. With fluids and Benadryl your heart rate and blood pre ssure have come back down to reassuring the normal limits. I suspect that you may have had a small reaction to your iron infusion. Fortunately your body has responded beautifully to the extra iron and you are no longer anemic so you do not need to continue these iron infusions. I would recommend continuing to check daily blood pressures and follow-up with your primary doctor. You may be an excellent candidate for a low-dose beta- jerad which can help prevent your heart rate from going quite so fast which also helps in controlling overall anxiety with a side effect of controlling blood pressure is well. If you have any recurrent symptoms or concerns please feel free to return to the ER Prescriptions: No Action buspirone 15 mg tablet 15 mg PO BID Qty: 180 0RF Rx Instructions: Take 15mg two times per day. tranexamic acid 650 mg tablet 650 mg PO QID Qty: 60 1RF Rx Instructions: Take 1 tab up to 4x/day as needed for the first 5 days of menstrual cycle naltrexone 50 mg tablet See Rx Instructions PO .COMPLEX Qty: 90 3RF Rx Instructions: Compounded 4.5mg capsules, Take 4.5mg by mouth at bedtime montelukast 10 mg tablet 10 mg PO BEDTIME Qty: 90 3RF Rx Instructions: Take 1 tab at bedtime daily for allergies co Q10-red yeast rice 25-600 mg capsule PO BID omega-3 fatty acids [Fish Oil Concentrate] 1,000 mg capsule 1,000 mg PO BID olive leaf extract 250 mg capsule 500 mg PO TID melatonin 10 mg tablet 10 mg PO BEDTIME PRN olopatadine [Pataday Once Daily Relief] 0.2 % drops 1 drp EYE-BOTH DAILY Qty: 2.5 0RF olopatadine 0.2 % drops ophthalmic (eye) Referrals: Shaylee Tian ARNP [Primary Care Provider] -
--- NOTE | 2022-03-19 19:32 | PC.NURSE ---
Pt reports iron infusion earlier this morning from [id number]. This is infusion #4. Reports similar episode happening after previous infusions and was told to come in to ED if recurrence of symptoms. Pt also reports life stress due to recent loss of Uncle and worrying about mother. Denies chest pain.
[2022-03-19 19:38] LABS: Add Manual Diff / Slide Review NO; Basophils Absolute Auto 100 /uL (0-100); Basophils Percent Auto 0.8 % (0-2); Eosinophils Absolute Auto 200 /uL (0-450); Eosinophils Percent Auto 1.8 % (2-4); Hematocrit 38.7 % (36-46); Hemoglobin 12.8 g/dL (12.0-16.0); Lymphocytes Absolute Auto 2500 /uL (1100-4500); Lymphocytes Percent Auto 26.2 % (25-40); Mean Corpuscular HGB Conc 33.1 % (30-36); Mean Corpuscular Hemoglobin 25.6 PG (26-34); Mean Corpuscular Volume 77.4 fL (80-100); Monocytes Absolute Auto 1000 /uL (0-900); Monocytes Percent Auto 10.5 % (3-14); Neutrophils Absolute Auto 5800 /uL (1500-7000); Neutrophils Percent Auto 60.7 % (50-75); Platelet Count 365 X10^3/uL (150-400); Red Cell Distribution Width 23.8 % (11.6-14.8); White Blood Cell Count 9.5 X10^3/uL (4.5-11.0)
[2022-03-19 19:58] LABS: Prothrombin Time 11.7 SECONDS (10.1-12.7)
[2022-03-19 20:00] LABS: PTT Partial Thromboplastin Tim 37 SECONDS (26.4-36.2)
[2022-03-19 20:07] LABS: Alanine Aminotransferase 19 IU/L (<35); Albumin 4.6 g/dL (3.5-5.0); Albumin Globulin Ratio 1.4 (1.0-2.8); Alkaline Phosphatase 60 U/L (38-126); Aspartate Aminotransferase 20 IU/L (14-36); BUN Creatinine Ratio 19.5 (6-22); Bilirubin Total 0.2 mg/dL (0.2-1.3); Blood Urea Nitrogen 15 mg/dL (7-17); Calcium 8.9 mg/dL (8.4-10.2); Carbon Dioxide 24 mmol/L (22-32); Chloride 103 mmol/L (98-107); Creatine Kinase 64 U/L (30-135); Estimated Glomerular Filt Rate > 60 mL/min (>60); Globulin 3.2 g/dL (1.7-4.1); Glucose 131 mg/dL (70-100); HEMOLYSIS < 15 (0-50); Lipase 76 U/L (23-300); Potassium 3.5 mmol/L (3.4-5.1); Sodium 136 mmol/L (137-145); Total Protein 7.8 g/dL (6.3-8.2)
[2022-03-19 20:10] LABS: Hypochromasia 1+; Microcytosis 1+
[2022-03-19 20:17] LABS: Troponin I < 0.012 ng/mL (0.01-0.034)
[2022-03-19] MEDS: SODIUM CHLORIDE 0.9% 1,000 ML 1000 ML IV (20:31)
[2022-03-19] MEDS: diphenhydrAMINE 25 MG TABLET PO (20:33)
== END 2022-03-19 21:52 | disposition home or self-care (01) ==
PROVIDERS: Emergency Provider Emergency Medicine; Family Provider Nurse Practitioner; PCP Nurse Practitioner
DX: F41.9 Anxiety disorder, unspecified (principal); R00.0 Tachycardia, unspecified; I10 Essential (primary) hypertension; R07.9 Chest pain, unspecified; R00.2 Palpitations; D50.9 Iron deficiency anemia, unspecified
CPT/HCPCS: 36415; 71045; 80053; 82550; 83690; 83735; 84484; 85025; 85610; 85730; 93005; 93010; 96360; 96365; 96413; 99284; J1756

== ENCOUNTER → 2022-09-06 11:50 | Outpatient (CLI) | payer OTHER, MEDICAID, SELFPAY ==
[2022-09-06 12:33] LABS: Add Manual Diff / Slide Review NO; Basophils Absolute Auto 0 /uL (0-100); Basophils Percent Auto 0.4 % (0-2); Eosinophils Absolute Auto 100 /uL (0-450); Eosinophils Percent Auto 1.4 % (2-4); Hematocrit 42.8 % (36-46); Hemoglobin 14.5 g/dL (12.0-16.0); Lymphocytes Absolute Auto 1900 /uL (1100-4500); Lymphocytes Percent Auto 26.4 % (25-40); Mean Corpuscular HGB Conc 33.9 % (30-36); Mean Corpuscular Hemoglobin 29.1 PG (26-34); Mean Corpuscular Volume 85.9 fL (80-100); Monocytes Absolute Auto 800 /uL (0-900); Monocytes Percent Auto 10.6 % (3-14); Neutrophils Absolute Auto 4400 /uL (1500-7000); Neutrophils Percent Auto 61.2 % (50-75); Platelet Count 378 X10^3/uL (150-400); Red Blood Cell Count 4.98 X10^6/uL (4.0-5.2); Red Cell Distribution Width 13.9 % (11.6-14.8); White Blood Cell Count 7.2 X10^3/uL (4.5-11.0)
[2022-09-06 12:49] LABS: Alanine Aminotransferase 22 IU/L (<35); Albumin 4.5 g/dL (3.5-5.0); Albumin Globulin Ratio 1.3 (1.0-2.8); Alkaline Phosphatase 62 U/L (38-126); Aspartate Aminotransferase 20 IU/L (14-36); BUN Creatinine Ratio 24.2 (6-22); Bilirubin Total 0.4 mg/dL (0.2-1.3); Blood Urea Nitrogen 15 mg/dL (7-17); Calcium 9.1 mg/dL (8.4-10.2); Carbon Dioxide 25 mmol/L (22-32); Chloride 103 mmol/L (98-107); Cholesterol 307 mg/dL (140-199); Estimated Glomerular Filt Rate > 60 mL/min (>60); Globulin 3.4 g/dL (1.7-4.1); Glucose 102 mg/dL (70-100); HDL Cholesterol 64 mg/dL (40-60); HEMOLYSIS < 15 (0-50); LDL Cholesterol Calculated 201 mg/dL (<100); Potassium 4.3 mmol/L (3.4-5.1); Sodium 138 mmol/L (137-145); Total Protein 7.9 g/dL (6.3-8.2); Triglycerides 209 mg/dL (35-150)
[2022-09-06 13:05] LABS: Free T3, Triiodothyronine Free 4.43 pg/mL (2.77-5.27); Free T4, Direct Thyroxine 1.21 ng/dL (0.78-2.19)
[2022-09-06 13:19] LABS: Thyroid Stimulating Hormone 1.18 uIU/mL (0.47-4.68)
== END ==
PROVIDERS: Family Provider Nurse Practitioner; PCP Nurse Practitioner; Referring Provider Nurse Practitioner; Visit Provider Nurse Practitioner
DX: D50.0 Iron deficiency anemia secondary to blood loss (chronic) (principal); E78.2 Mixed hyperlipidemia; F41.8 Other specified anxiety disorders; G47.00 Insomnia, unspecified; R63.5 Abnormal weight gain; R73.01 Impaired fasting glucose
CPT/HCPCS: 36415; 80053; 80061; 84439; 84443; 84481; 85025

== ENCOUNTER → 2023-04-03 16:25 | Outpatient (CLI) | payer OTHER, MEDICAID, SELFPAY ==
[2023-04-03 17:09] LABS: Add Manual Diff / Slide Review NO; Basophils Absolute Auto 100 /uL (0-100); Basophils Percent Auto 0.8 % (0-2); Eosinophils Absolute Auto 300 /uL (0-450); Eosinophils Percent Auto 3.8 % (2-4); Hematocrit 39.2 % (36-46); Lymphocytes Absolute Auto 2100 /uL (1100-4500); Mean Corpuscular HGB Conc 33.1 % (30-36); Mean Corpuscular Hemoglobin 26.3 PG (26-34); Mean Corpuscular Volume 79.3 fL (80-100); Monocytes Absolute Auto 900 /uL (0-900); Monocytes Percent Auto 10.2 % (3-14); Neutrophils Absolute Auto 5200 /uL (1500-7000); Neutrophils Percent Auto 60.2 % (50-75); Platelet Count 641 X10^3/uL (150-400); Red Blood Cell Count 4.95 X10^6/uL (4.0-5.2); Red Cell Distribution Width 16.2 % (11.6-14.8); White Blood Cell Count 8.6 X10^3/uL (4.5-11.0)
[2023-04-03 17:26] LABS: Alanine Aminotransferase 18 IU/L (<35); Albumin 4.2 g/dL (3.5-5.0); Albumin Globulin Ratio 1.4 (1.0-2.8); Alkaline Phosphatase 64 U/L (38-126); Aspartate Aminotransferase 17 IU/L (14-36); BUN Creatinine Ratio 17.4 (6-22); Bilirubin Total 0.3 mg/dL (0.2-1.3); Blood Urea Nitrogen 12 mg/dL (7-17); Calcium 9.3 mg/dL (8.4-10.2); Carbon Dioxide 25 mmol/L (22-32); Chloride 103 mmol/L (98-107); Cholesterol 274 mg/dL (140-199); Estimated Glomerular Filt Rate > 60 mL/min (>60); Glucose 97 mg/dL (70-100); HDL Cholesterol 64 mg/dL (40-60); HEMOLYSIS < 15 (0-50); LDL Cholesterol Calculated 175 mg/dL (<100); Potassium 4.6 mmol/L (3.4-5.1); Sodium 134 mmol/L (137-145); Total Protein 7.2 g/dL (6.3-8.2); Triglycerides 177 mg/dL (35-150)
== END ==
PROVIDERS: Family Provider Nurse Practitioner; PCP Nurse Practitioner; Referring Provider Family Medicine; Visit Provider Family Medicine
DX: D50.0 Iron deficiency anemia secondary to blood loss (chronic) (principal); E78.2 Mixed hyperlipidemia; R73.01 Impaired fasting glucose
CPT/HCPCS: 36415; 80053; 80061; 85025

== ENCOUNTER → 2023-04-10 13:32 | Outpatient (CLI) | payer OTHER, MEDICAID, SELFPAY ==
--- NOTE | 2023-04-10 13:33 | DI.MG.S_ITS ---
BILATERAL DIGITAL DIAGNOSTIC MAMMOGRAM 3D/2D: 04/10/2023 CLINICAL: Patient returns for late 6 month follow up on left breast for calcifications. Due for bilateral exam. Comparison is made to exams dated: 11/26/2021 mammogram, 05/06/2021 mammogram, 04/17/2021 mammogram, and 01/31/2016 mammogram - [facility]. Both breasts are heterogeneously dense, which may obscure small masses (category c / 51-75% glandular tissue). There are stable benign grouped fine punctate calcifications in the left breast central to the nipple anterior depth. No other significant masses, calcifications, or other findings are seen in either breast. IMPRESSION: BENIGN There is no mammographic evidence of malignancy. Left breast calcifications demonstrate long-term stability and are benign. A 1 year screening mammogram is recommended. Based on the Tyrer Cuzick model (a risk assessment model) the patient's lifetime risk is 15.4% and her 10 year risk is 3.7%. According to the ACR, ACS, and NCCN guidelines, an annual breast MRI exam along with mammogram is recommended if the patient's lifetime risk is 20% or greater. This exam was interpreted at Station ID: [id number]. NOTE: For mammograms, a report in lay terms will be sent to the patient. Approximately 15% of breast malignancies will not be visualized mammographically. In the management of a palpable breast mass, a negative mammogram must not discourage biopsy of a clinically suspicious lesion. Electronically Signed By: Omar Rodríguez M.D. slc/:04/10/2023 14:14:21 letter sent: Normal Exam ACR BI-RADS Category 2: Benign Finding(s) 3342F
== END ==
PROVIDERS: Family Provider Nurse Practitioner; PCP Nurse Practitioner; Referring Provider Nurse Practitioner; Visit Provider Nurse Practitioner
DX: N63.20 Unspecified lump in the left breast, unspecified quadrant; R92.1 Mammographic calcification found on diagnostic imaging of breast
CPT/HCPCS: 77066; G0279

== ENCOUNTER → 2023-05-11 16:18 | Outpatient (CLI) | payer OTHER, MEDICAID, SELFPAY ==
[2023-05-11 16:55] LABS: Add Manual Diff / Slide Review NO; Basophils Absolute Auto 100 /uL (0-100); Basophils Percent Auto 0.6 % (0-2); Eosinophils Absolute Auto 600 /uL (0-450); Eosinophils Percent Auto 6.7 % (2-4); Hematocrit 39.4 % (36-46); Hemoglobin 13.4 g/dL (12.0-16.0); Lymphocytes Absolute Auto 1900 /uL (1100-4500); Lymphocytes Percent Auto 20.5 % (25-40); Mean Corpuscular Hemoglobin 26.8 PG (26-34); Mean Corpuscular Volume 78.7 fL (80-100); Monocytes Absolute Auto 900 /uL (0-900); Monocytes Percent Auto 9.3 % (3-14); Neutrophils Absolute Auto 5900 /uL (1500-7000); Neutrophils Percent Auto 62.9 % (50-75); Platelet Count 404 X10^3/uL (150-400); Red Blood Cell Count 5.01 X10^6/uL (4.0-5.2); Red Cell Distribution Width 17.8 % (11.6-14.8); White Blood Cell Count 9.4 X10^3/uL (4.5-11.0)
[2023-05-11 16:59] LABS: HEMOLYSIS < 15 (0-50); Iron 66 ug/dL (37-170)
[2023-05-11 17:10] LABS: Percent Iron Saturation 15 % (15-50); Total Iron Binding Capacity 444 ug/dL (265-497); Transferrin 326 mg/dL (206-381)
[2023-05-11 17:34] LABS: Ferritin 7 ng/mL (11-264)
== END ==
PROVIDERS: Family Provider Nurse Practitioner; PCP Nurse Practitioner; Referring Provider Family Medicine; Visit Provider Family Medicine
DX: D50.0 Iron deficiency anemia secondary to blood loss (chronic) (principal); D64.9 Anemia, unspecified; D75.839 Thrombocytosis, unspecified
CPT/HCPCS: 36415; 82728; 83540; 83550; 85025

== ENCOUNTER → 2023-08-07 10:28 | Outpatient (CLI) | payer OTHER, MEDICAID, SELFPAY ==
[2023-08-07 11:23] LABS: Add Manual Diff / Slide Review NO; Basophils Absolute Auto 0 /uL (0-100); Basophils Percent Auto 0.4 % (0-2); Eosinophils Absolute Auto 200 /uL (0-450); Eosinophils Percent Auto 2.4 % (2-4); Hematocrit 40.1 % (36-46); Hemoglobin 13.9 g/dL (12.0-16.0); Lymphocytes Absolute Auto 1900 /uL (1100-4500); Lymphocytes Percent Auto 27.8 % (25-40); Mean Corpuscular HGB Conc 34.7 % (30-36); Mean Corpuscular Hemoglobin 29.2 PG (26-34); Mean Corpuscular Volume 84.4 fL (80-100); Monocytes Absolute Auto 700 /uL (0-900); Monocytes Percent Auto 10.3 % (3-14); Neutrophils Absolute Auto 4000 /uL (1500-7000); Neutrophils Percent Auto 59.1 % (50-75); Platelet Count 306 X10^3/uL (150-400); Red Blood Cell Count 4.76 X10^6/uL (4.0-5.2); Red Cell Distribution Width 16.5 % (11.6-14.8); White Blood Cell Count 6.9 X10^3/uL (4.5-11.0)
[2023-08-07 11:40] LABS: Alanine Aminotransferase 23 IU/L (<35); Albumin 4.2 g/dL (3.5-5.0); Albumin Globulin Ratio 1.3 (1.0-2.8); Alkaline Phosphatase 44 U/L (38-126); Aspartate Aminotransferase 20 IU/L (14-36); BUN Creatinine Ratio 28.6 (6-22); Bilirubin Total 0.6 mg/dL (0.2-1.3); Blood Urea Nitrogen 16 mg/dL (7-17); Calcium 9.1 mg/dL (8.4-10.2); Carbon Dioxide 25 mmol/L (22-32); Chloride 104 mmol/L (98-107); Cholesterol 254 mg/dL (140-199); Estimated Glomerular Filt Rate > 60 mL/min (>60); Globulin 3.3 g/dL (1.7-4.1); Glucose 95 mg/dL (70-100); HDL Cholesterol 60 mg/dL (40-60); HEMOLYSIS < 15 (0-50); Iron 133 ug/dL (37-170); LDL Cholesterol Calculated 165 mg/dL (<100); Potassium 4.2 mmol/L (3.4-5.1); Sodium 136 mmol/L (137-145); Total Protein 7.5 g/dL (6.3-8.2); Triglycerides 145 mg/dL (35-150)
[2023-08-07 11:50] LABS: Percent Iron Saturation 39 % (15-50); Total Iron Binding Capacity 338 ug/dL (265-497); Transferrin 293 mg/dL (206-381)
[2023-08-07 12:15] LABS: Ferritin 12 ng/mL (11-264)
== END ==
PROVIDERS: Family Provider Nurse Practitioner; PCP Nurse Practitioner; Referring Provider Family Medicine; Visit Provider Family Medicine
DX: E61.1 Iron deficiency (principal); D75.839 Thrombocytosis, unspecified; D64.9 Anemia, unspecified; E78.2 Mixed hyperlipidemia
CPT/HCPCS: 36415; 80053; 80061; 82728; 83540; 83550; 85025

== ENCOUNTER → 2024-10-01 10:28 | Outpatient (CLI) | payer OTHER, SELFPAY ==
[2024-10-01 12:21] LABS: Add Manual Diff / Slide Review NO; Basophils Absolute Auto 0 /uL (0-100); Basophils Percent Auto 0.5 % (0-2); Eosinophils Absolute Auto 100 /uL (0-450); Hematocrit 44.3 % (36-46); Hemoglobin 15.3 g/dL (12.0-16.0); Lymphocytes Absolute Auto 1700 /uL (1100-4500); Lymphocytes Percent Auto 31.3 % (25-40); Mean Corpuscular HGB Conc 34.6 % (30-36); Mean Corpuscular Volume 89.5 fL (80-100); Monocytes Absolute Auto 700 /uL (0-900); Monocytes Percent Auto 12.4 % (3-14); Neutrophils Absolute Auto 3000 /uL (1500-7000); Neutrophils Percent Auto 54.8 % (50-75); Platelet Count 361 X10^3/uL (150-400); Red Blood Cell Count 4.95 X10^6/uL (4.0-5.2); Red Cell Distribution Width 12.6 % (11.6-14.8); White Blood Cell Count 5.5 X10^3/uL (4.5-11.0)
[2024-10-01 13:30] LABS: Alanine Aminotransferase 32 IU/L (<35); Albumin 4.8 g/dL (3.5-5.0); Albumin Globulin Ratio 1.8 (1.0-2.8); Alkaline Phosphatase 47 U/L (38-126); Aspartate Aminotransferase 27 IU/L (14-36); BUN Creatinine Ratio 22.2 (6-22); Bilirubin Total 0.7 mg/dL (0.2-1.3); Blood Urea Nitrogen 16 mg/dL (7-17); Calcium 9.4 mg/dL (8.4-10.2); Carbon Dioxide 23 mmol/L (22-32); Chloride 104 mmol/L (98-107); Cholesterol 234 mg/dL (140-199); Estimated Glomerular Filt Rate > 60 mL/min (>60); Globulin 2.7 g/dL (1.7-4.1); Glucose 100 mg/dL (70-100); HDL Cholesterol 80 mg/dL (40-60); HEMOLYSIS < 15 (0-50); LDL Cholesterol Calculated 124 mg/dL (<100); Potassium 4.2 mmol/L (3.4-5.1); Sodium 138 mmol/L (137-145); Total Protein 7.5 g/dL (6.3-8.2); Triglycerides 152 mg/dL (35-150)
[2024-10-01 14:29] LABS: TSH w/ Reflex to FT4 0.97 uIU/mL (0.47-4.68)
== END ==
LOC: LAB 10:29
PROVIDERS: Family Provider Nurse Practitioner; PCP Family Medicine; Referring Provider Family Medicine; Visit Provider Family Medicine
DX: D75.839 Thrombocytosis, unspecified (principal); E78.2 Mixed hyperlipidemia; F41.8 Other specified anxiety disorders
CPT/HCPCS: 36415; 80053; 80061; 84443; 85025

== ENCOUNTER → 2025-05-08 10:56 | Outpatient (CLI) | payer OTHER, SELFPAY ==
--- NOTE | 2025-05-08 10:58 | DI.RAD.S_ITS ---
PROCEDURE: XR SHOULDER RT MIN 2V INDICATIONS: right shoulder injury TECHNIQUE: 3 views of the shoulder were acquired. COMPARISON: None. FINDINGS: Bones: No fractures or dislocations. [id number]-[id number] acromioclavicular joint osteoarthritic changes are seen. No suspicious bony lesions. Visualized ribs appear intact. Soft tissues: Small calcification adjacent to greater tuberosity of humeral head is seen. IMPRESSION: No acute shoulder fracture or dislocation. Suggestion of calcific tendinitis involving distal rotator cuff tendon at its insertion on greater trochanter. [id number]-rxfcyehw acromioclavicular joint osteoarthritis. Dictated by: Silvestre Harvey M.D. on 05/08/2025 at 12:13 Approved by: Silvestre Harvey M.D. on 05/08/2025 at 12:17
== END ==
PROVIDERS: Family Provider Nurse Practitioner; PCP Family Medicine; Referring Provider Physician Assistant Medical; Visit Provider Physician Assistant Medical
DX: S49.90XA Unspecified injury of shoulder and upper arm, unspecified arm, initial encounter (principal); M19.011 Primary osteoarthritis, right shoulder
CPT/HCPCS: 73030